=== PATIENT | male | born 1940 | race Caucasian/White ===

== ENCOUNTER → 2016-11-11 | Outpatient (CLI) | payer MEDICARE, OTHER ==
[2016-11-11 08:02] LABS: Basophils # (A) 0.1 k/uL (0-0.2); Basophils % (A) 1 %; CH 28.9; CHCM 32.3; Eosinophils # (A) 0.2 k/uL (0-0.7); Eosinophils % (A) 3 %; HCT 48.6 % (39.0-53.0); HDW 2.32; HGB 15.9 gm/dL (13.0-17.5); Luc # (Auto) 0.27; Luc % (Auto) 3; Lymphocytes # (A) 1.7 k/uL (1.0-4.8); Lymphocytes % (A) 22 %; MCH 29.4 pg (25.0-35.0); MCHC 32.7 g/dL (31.0-37.0); MCV 89.9 fL (80.0-100.0); Mean Platelet Volume 9.8; Monocytes # (A) 0.7 k/uL (0-1.0); Monocytes % (A) 8 %; Neutrophils % (A) 63 %; RBC 5.41 m/uL (4.30-5.90); RDW 13.5 % (11.5-15.5); WBC 7.9 k/uL (3.8-10.6); WBC (Perox) 8.13
[2016-11-11 10:22] LABS: Rheumatoid Factor, Qnt <9 IU/mL (<12)
[2016-11-11 10:23] LABS: C Reactive Protein 20.9 mg/L (<10.0); Uric Acid 5.2 mg/dL (3.5-8.5)
[2016-11-11 12:38] LABS: Erythrocyte Sedimentation Rate 16 mm/hr (0-15)
== END | disposition home or self-care (01) ==
LOC: LABWHC1 07:24
PROVIDERS: ATTEND Orthopaedic Surgery
DX: M25.50 Pain in unspecified joint (principal)
CPT/HCPCS: 36415; 84550; 85025; 85652; 86038; 86140; 86431

== ENCOUNTER → 2016-11-12 | Outpatient (CLI) | payer MEDICARE, OTHER ==
--- NOTE | 2016-11-12 13:43 | NM ---
EXAMINATION TYPE: NM bone 3 phase DATE OF EXAM: 11/12/2016 1:35 PM COMPARISON: NONE HISTORY: Right knee replacement Triple phase bone scintigraphy was performed following the injection of24.9 mCi Tc 99m MDP. Immediat e images and 5 hours post injection images acquired. FINDINGS: There is symmetric flow bilaterally. Photopenic defect involving the right knee compatible with previ ous surgery. No suspicious uptake seen for infectious process. IMPRESSION: No scintigraphic evidence of infection or loosening..
== END | disposition home or self-care (01) ==
LOC: RADNMMAIN 07:37
PROVIDERS: ATTEND Orthopaedic Surgery
DX: M25.561 Pain in right knee (principal)
CPT/HCPCS: 78315; A9503

== ENCOUNTER → 2016-11-29 | Outpatient (CLI) | payer MEDICARE, OTHER ==
--- NOTE | 2016-11-29 12:41 | CT ---
EXAMINATION TYPE: CT brain wo con DATE OF EXAM: 11/29/2016 12:26 PM COMPARISON: NONE INDICATION: [place], post head injury DLP: 1051.5 mGycm, Automated exposure control for dose reduction was used. CONTRAST: No contrast CT of the brain is performed utilizing 3 mm thick sections through the posterior fossa and 3 mm thick sections through the remaining calvarium. Study is performed within 24 hours of arrival to the hosp ital. No abnormal hyperdensity is present to suggest an acute intracranial hemorrhage. No mass lesion is evident. No acute infarcts are evident. Ventricles and sulci are appropriate for the patient age. Mucosal thickening within the left maxillary sinus. Remaining paranasal sinuses and mastoid air cells included within the [id number] are clear. IMPRESSIONS: 1. No acute intracranial process.
== END | disposition home or self-care (01) ==
LOC: RADCTMAIN 11:46
PROVIDERS: ATTEND Internal Medicine
DX: R51 Headache (principal)
CPT/HCPCS: 70450

== ENCOUNTER → 2018-02-17 | Outpatient (CLI) | payer MEDICARE, OTHER ==
--- NOTE | 2018-02-22 19:16 | ENG ---
ELECTRONYSTAGMOGRAM REPORT DATE OF SERVICE: 02/17/2018 VIDEO ELECTRONYSTAGMOGRAPHIC REPORT: AGE: 77 VNG INDICATIONS: 77-year-old male with chronic dizziness over 40 years, sudden onset staying the same. Dizziness occurs every 2-3 days and duration varies. Dizziness can be precipitated by going from a lying or to a seated position, looking up or head back position, bending over or head down position, moving the head or in large crowds or dizzy improvements. No difficulties with hearing reported. Has tinnitus in both ears. Steady nature without pain, fullness or pressure. VNG FINDINGS: SPONTANEOUS NYSTAGMUS: SACCADES: Saccades shows intact peak velocities, accuracies and latencies. GAZE TEST: Gaze with fixation shows no nystagmus in any of the directions of gaze including centrally with vision denied. SINUSOIDAL TRACKING: Tracking shows [id number] break-ups. OKN TEST: Optokinetic nystagmus shows no asymmetry. NELLI-HALLPIKE TEST: [place]-Hallpike maneuvers could not be completed due to back and neck pain issues. POSITION TEST: Static position testing in 4 different positions with eyes open and then with vision denied shows no nystagmus. CALORIC TEST: Caloric testing shows bilateral caloric weakness. CONCLUSIONS: Tracking is impaired suggesting possible central nervous system causation. No nystagmus was encountered throughout the test. Caloric testing showed bilateral caloric weakness with insufficient caloric response. Another test such as head thrust test or if available, active and passive rotation testing is required to confirm presence of bilateral vestibular dysfunction. Other features of this study are unremarkable. MMODL / IJN: [id number] /
== END | disposition home or self-care (01) ==
LOC: NEUROMAIN 07:23
PROVIDERS: ATTEND Otolaryngology
DX: H81.8X3 Other disorders of vestibular function, bilateral (principal)
CPT/HCPCS: 92537; 92540

== ENCOUNTER → 2018-03-10 | Outpatient (CLI) | payer MEDICARE, OTHER ==
--- NOTE | 2018-03-10 14:58 | CT ---
EXAMINATION TYPE: CT iac wo/w con DATE OF EXAM: 03/10/2018 COMPARISON: NONE HISTORY: Hearing loss CT DLP: 524 mGycm Automated exposure control for dose reduction was used. CONTRAST: CT scan of the IACs is performed without and with IV Contrast, patient injected with 100 ml mL of Iso gissell 300. FINDINGS: The external auditory canals are patent bilaterally. Mastoid air cells show no evidence of abnormal opacification bilaterally. The middle ear ossicles are symmetric and unremarkable. No cerebellopontine angle mass. Changes of chronic sinusitis noted involving the left maxillary sinus . There is no evidence of suspicious surrounding soft tissue density to suggest cholesteatoma. The scu caprice is preserved bilaterally. The cochlea and the semicircular canals are symmetric and unremarkable . Vestibular aqueduct and internal carotid canal appear unremarkable. Temporomandibular joints are agustin ntained bilaterally. IMPRESSION: No significant abnormality seen to account for patient's symptoms.
== END | disposition home or self-care (01) ==
LOC: RADCTMAIN 13:11
PROVIDERS: ATTEND Otolaryngology
DX: H91.90 Unspecified hearing loss, unspecified ear (principal); R42 Dizziness and giddiness
CPT/HCPCS: 82565; 84520; 70482; 36415; Q9967

== ENCOUNTER 2018-07-21 16:20 | Inpatient (IN) | payer MEDICARE, OTHER ==
[2018-07-21] MEDS ORDERED: ASPIRIN 81 MG PO STA (16:44)
[2018-07-21] MEDS ORDERED: NITROGLYCERIN SL TABS 0.4 MG TAB SUBLINGUAL STA ×3 (16:44)
--- NOTE | 2018-07-21 16:48 | ED ---
General Adult HPI - General Chief complaint: Chest Pain Stated complaint: Chest Pain Time Seen by Provider: 07/21/18 16:37 Source: patient, family, RN notes reviewed Mode of arrival: wheelchair Limitations: no limitations - History of Present Illness Initial comments: Patient is a pleasant 78-year-old nail presenting to the emergency Department with complaints of chest discomfort. Onset of symptoms was 3-4 days ago. Symptoms have been waxing and waning. Discomfort feels like tightness. Discomfort is currently 6/10. Patient tried nitroglycerin a day or so ago without improvement of symptoms. Symptoms are similar to previous heart problems. No associated nausea. Patient does feel slightly short of breath and has been somewhat sweaty. - Related Data Home Medications Medication Instructions Recorded Confirmed Atenolol [Tenormin] 50 mg PO DAILY 07/21/18 07/21/18 Atorvastatin Calcium [Lipitor] 20 mg PO HS 07/21/18 07/21/18 Chlorthalidone 25 mg PO DAILY 07/21/18 07/21/18 Docusate [Colace] 200 mg PO BID PRN 07/21/18 07/21/18 Gemfibrozil [Lopid] 600 mg PO AC-BID 07/21/18 07/21/18 Hydrocodone/Acetaminophen [[place] 1 tab PO Q8H PRN 07/21/18 07/21/18 7.5-325] Insulin Aspart [Novolog] 30 unit SQ AC-TID 07/21/18 07/21/18 Insulin Detemir [Levemir] 100 unit SQ DAILY 07/21/18 07/21/18 Isosorbide Mononitrate ER [Imdur] 30 mg PO DAILY 07/21/18 07/21/18 Meclizine [Antivert] 25 mg PO Q8HR PRN 07/21/18 07/21/18 Omeprazole 20 mg PO DAILY 07/21/18 07/21/18 amLODIPine [Norvasc] 5 mg PO DAILY 07/21/18 07/21/18 metFORMIN HCL [Glucophage] 1,000 mg PO BID 07/21/18 07/21/18 Allergies Allergy/AdvReac Type Severity Reaction Status Date / Time No Known Allergies Allergy Verified 07/21/18 16:30 Review of Systems ROS Statement: Those systems with pertinent positive or pertinent negative responses have been documented in the HPI. ROS Other: All systems not noted in ROS Statement are negative. Constitutional: Denies: fever Eyes: Denies: eye pain ENT: Denies: ear pain Respiratory: Denies: cough Cardiovascular: Reports: chest pain Endocrine: Denies: fatigue Gastrointestinal: Denies: abdominal pain Genitourinary: Denies: dysuria Musculoskeletal: Denies: back pain Skin: Denies: rash Neurological: Denies: weakness Past Medical History Past Medical History: CVA/TIA, Hypertension, Sleep Apnea/CPAP/BIPAP History of Any Multi-Drug Resistant Organisms: None Reported Past Surgical History: Hernia Repair Past Psychological History: No Psychological Hx Reported Smoking Status: Never smoker Past Alcohol Use History: None Reported Past Drug Use History: None Reported General Exam Limitations: no limitations General appearance: alert, in no apparent distress Head exam: Present: atraumatic Eye exam: Present: normal appearance, PERRL ENT exam: Present: normal oropharynx Neck exam: Present: normal inspection Respiratory exam: Present: normal lung sounds bilaterally Cardiovascular Exam: Present: regular rate, normal rhythm Expanded Peripheral pulses: 2+: Radial (R), Radial (L), Posterior Tibialis (R), Posterior Tibialis (L) GI/Abdominal exam: Present: soft. Absent: tenderness Extremities exam: Present: normal inspection. Absent: pedal edema, calf tenderness Neurological exam: Present: alert Psychiatric exam: Present: normal affect, normal mood Skin exam: Present: normal color Course Vital Signs 07/21/18 07/21/18 07/21/18 16:26 17:09 17:12 Temperature 98.3 F 98.8 F Pulse Rate 81 73 Pulse Rate [ 73 Left Pulse Oximetery] Respiratory 20 20 20 Rate Blood Pressure 145/82 128/73 O2 Sat by Pulse 94 L 92 L Oximetry EKG Findings - EKG Comments: EKG Findings:: Sinus rhythm at 78. MA 200. QRS 104. QT 392. QTC 446. Left axis. Incomplete right bundle-branch block. Borderline ST depression leads V3 through V5. Medical Decision Making - Medical Decision Making Patient reevaluated and symptom-free following nitroglycerin. Patient and family are updated regarding results and plan. Dr. Abel has been paged for admission of this patient. Dr. Bajwa has been notified with cardiology. - Lab Data Result diagrams: 07/21/18 17:01 07/21/18 17:01 Lab Results 07/21/18 07/21/18 07/21/18 Range/Units 17:01 17:01 17:01 WBC 8.6 (3.8-10.6) k/uL RBC 5.11 (4.30-5.90) m/uL Hgb 15.1 (13.0-17.5) gm/dL Hct 47.5 (39.0-53.0) % MCV 92.9 (80.0-100.0) fL MCH 29.6 (25.0-35.0) pg MCHC 31.8 (31.0-37.0) g/dL RDW 13.4 (11.5-15.5) % Plt Count 238 (150-450) k/uL Neutrophils % 64 % Lymphocytes % 23 % Monocytes % 8 % Eosinophils % 3 % Basophils % 1 % Neutrophils # 5.5 (1.3-7.7) k/uL Lymphocytes # 2.0 (1.0-4.8) k/uL Monocytes # 0.7 (0-1.0) k/uL Eosinophils # 0.3 (0-0.7) k/uL Basophils # 0.1 (0-0.2) k/uL PT (9.0-12.0) sec INR (<1.2) APTT (22.0-30.0) sec Sodium 137 (137-145) mmol/L Potassium 3.9 (3.5-5.1) mmol/L Chloride 98 (98-107) mmol/L Carbon Dioxide 24 (22-30) mmol/L Anion Gap 15 mmol/L BUN 26 H (9-20) mg/dL Creatinine 1.07 (0.66-1.25) mg/dL Est GFR (CKD-EPI)AfAm 78 (>60 ml/min/1.73 sqM) Est GFR (CKD-EPI)NonAf 68 (>60 ml/min/1.73 sqM) Glucose 449 H (74-99) mg/dL Calcium 9.2 (8.4-10.2) mg/dL Magnesium 1.3 L (1.6-2.3) mg/dL Total Bilirubin 0.3 (0.2-1.3) mg/dL AST 24 (17-59) U/L ALT 27 (21-72) U/L Alkaline Phosphatase 106 (38-126) U/L Total Creatine Kinase 51 L (55-170) U/L CK-MB (CK-2) 3.4 H (0.0-2.4) ng/mL CK-MB (CK-2) Rel Index 6.7 Troponin I 0.405 H* (0.000-0.034) ng/mL Total Protein 6.9 (6.3-8.2) g/dL Albumin 3.9 (3.5-5.0) g/dL Amylase 48 (30-110) U/L Lipase 152 (23-300) U/L 07/21/18 Range/Units 17:01 WBC (3.8-10.6) k/uL RBC (4.30-5.90) m/uL Hgb (13.0-17.5) gm/dL Hct (39.0-53.0) % MCV (80.0-100.0) fL MCH (25.0-35.0) pg MCHC (31.0-37.0) g/dL RDW (11.5-15.5) % Plt Count (150-450) k/uL Neutrophils % % Lymphocytes % % Monocytes % % Eosinophils % % Basophils % % Neutrophils # (1.3-7.7) k/uL Lymphocytes # (1.0-4.8) k/uL Monocytes # (0-1.0) k/uL Eosinophils # (0-0.7) k/uL Basophils # (0-0.2) k/uL PT 10.1 (9.0-12.0) sec INR 1.0 (<1.2) APTT 23.6 (22.0-30.0) sec Sodium (137-145) mmol/L Potassium (3.5-5.1) mmol/L Chloride (98-107) mmol/L Carbon Dioxide (22-30) mmol/L Anion Gap mmol/L BUN (9-20) mg/dL Creatinine (0.66-1.25) mg/dL Est GFR (CKD-EPI)AfAm (>60 ml/min/1.73 sqM) Est GFR (CKD-EPI)NonAf (>60 ml/min/1.73 sqM) Glucose (74-99) mg/dL Calcium (8.4-10.2) mg/dL Magnesium (1.6-2.3) mg/dL Total Bilirubin (0.2-1.3) mg/dL AST (17-59) U/L ALT (21-72) U/L Alkaline Phosphatase (38-126) U/L Total Creatine Kinase (55-170) U/L CK-MB (CK-2) (0.0-2.4) ng/mL CK-MB (CK-2) Rel Index Troponin I (0.000-0.034) ng/mL Total Protein (6.3-8.2) g/dL Albumin (3.5-5.0) g/dL Amylase (30-110) U/L Lipase (23-300) U/L - Radiology Data Radiology results: image reviewed (Chest x-ray shows chronic elevated right hemidiaphragm, unchanged.) Critical Care Time Critical Care Time: Yes Total Critical Care Time: 32 Disposition Clinical Impression: NSTEMI (non-ST elevated myocardial infarction) Disposition: ADMITTED IP TO THIS [facility] Condition: Serious Is patient prescribed a controlled substance at d/c from ED?: No Referrals: Sharlene Abel MD [Primary Care Provider] - 1-2 days Decision Time: 18:25
[2018-07-21 17:16] LABS: Basophils # (A) 0.1 k/uL (0-0.2); Basophils % (A) 1 %; Eosinophils # (A) 0.3 k/uL (0-0.7); Eosinophils % (A) 3 %; HCT 47.5 % (39.0-53.0); HGB 15.1 gm/dL (13.0-17.5); Lymphocytes % (A) 23 %; MCH 29.6 pg (25.0-35.0); MCHC 31.8 g/dL (31.0-37.0); MCV 92.9 fL (80.0-100.0); Mean Platelet Volume 9.4; Monocytes # (A) 0.7 k/uL (0-1.0); Monocytes % (A) 8 %; Neutrophils # (A) 5.5 k/uL (1.3-7.7); Neutrophils % (A) 64 %; Platelet Count 238 k/uL (150-450); RBC 5.11 m/uL (4.30-5.90); RDW 13.4 % (11.5-15.5); WBC 8.6 k/uL (3.8-10.6)
[2018-07-21 17:23] LABS: Partial Thromboplastin Time 23.6 sec (22.0-30.0); Prothrombin Time 10.1 sec (9.0-12.0)
[2018-07-21 17:24] LABS: Albumin 3.9 g/dL (3.5-5.0); Calcium 9.2 mg/dL (8.4-10.2); Magnesium 1.3 mg/dL (1.6-2.3); Potassium 3.9 mmol/L (3.5-5.1); Total Bilirubin 0.3 mg/dL (0.2-1.3); Total Protein 6.9 g/dL (6.3-8.2)
[2018-07-21 17:46] LABS: Creatine Kinase MB 3.4 ng/mL (0.0-2.4)
[2018-07-21 17:48] LABS: Troponin I 0.405 ng/mL (0.000-0.034)
--- NOTE | 2018-07-21 18:14 | XR ---
EXAMINATION TYPE: XR chest 2V DATE OF EXAM: 07/21/2018 COMPARISON: 05/15/2016 HISTORY: Chest pain TECHNIQUE: Frontal and lateral views of the chest are obtained. FINDINGS: There is elevated right diaphragm. There is no heart failure. There are chest leads. Lungs are clear of consolidation. Heart size is normal. The bony thorax is intact. IMPRESSION: There is chronic right diaphragm elevation that could relate to paralysis. No change.
[2018-07-21] MEDS ORDERED: HEPARIN SODIUM,PORCINE 5,000 UNIT/ML 1 ML VIAL IV ONE (18:25)
[2018-07-21] MEDS ORDERED: HEPARIN SODIUM,PORCINE 5,000 UNIT/ML 1 ML VIAL IV PRN (18:25)
[2018-07-21] MEDS ORDERED: NITROGLYCERIN SL TABS 0.4 MG TAB SUBLINGUAL PRN (18:25)
[2018-07-21] MEDS ORDERED: HEPARIN SOD,PORK IN 0.45% NACL 25,000 UNIT in 0.45% NACL 1 500ML.BAG IV SCH (18:30)
[2018-07-21 20:20] LABS: Glucose,Whole Blood 396 mg/dL (75-99)
[2018-07-21] MEDS ORDERED: DOCUSATE 100 MG CAP PO PRN (20:54)
[2018-07-21] MEDS ORDERED: MECLIZINE 25 MG TAB PO PRN (20:54)
[2018-07-21] MEDS ORDERED: ATORVASTATIN 20 MG TAB PO SCH (21:00)
[2018-07-21] MEDS: HYDROcodone/APAP 7.5-325MG 1 EACH TAB PO PRN (21:21)
[2018-07-21] MEDS: INSULIN ASPART 100 UNIT/ML 1 ML 10 ML VIAL SQ SCH ×2 (21:30→21:54)
[2018-07-21] MEDS: INSULIN DETEMIR 100 UNIT/ML 10 ML VIAL SQ SCH (22:10)
[2018-07-21] MEDS ORDERED: Magnesium Replacement Protocol 1 EACH MISC MISCELLANE PRN (22:17)
[2018-07-21] MEDS: MAGNESIUM SULFATE-D5W PMX 1 GM in DEXTROSE/WATER 1 100ML.BAG IVPB SCH (23:01)
[2018-07-21 23:51] LABS: Creatine Kinase MB 2.9 ng/mL (0.0-2.4)
[2018-07-21 23:55] LABS: Troponin I 0.457 ng/mL (0.000-0.034)
[2018-07-22] MEDS ORDERED: NITROGLYCERIN OINT 1 INCH/GM PACKET TOPICAL SCH
[2018-07-22] MEDS: MAGNESIUM SULFATE-D5W PMX 1 GM in DEXTROSE/WATER 1 100ML.BAG IVPB SCH ×2 (00:02→01:17)
[2018-07-22 02:31] LABS: Hemoglobin A1C 12.3 % (4.0-6.0)
[2018-07-22 05:44] LABS: Mean Platelet Volume 8.5; Platelet Count 233 k/uL (150-450)
[2018-07-22 06:22] LABS: Glucose,Whole Blood 146 mg/dL (75-99)
[2018-07-22] MEDS: INSULIN ASPART 100 UNIT/ML 1 ML 10 ML VIAL SQ SCH ×7 (06:36→20:37)
[2018-07-22 06:40] LABS: Creatine Kinase MB 3.6 ng/mL (0.0-2.4)
[2018-07-22] MEDS: PANTOPRAZOLE 40 MG TABLET PO SCH (06:40)
[2018-07-22 06:41] LABS: Troponin I 0.709 ng/mL (0.000-0.034)
--- NOTE | 2018-07-22 08:12 | P.CRDCN ---
History of Present Illness Consult date: 07/22/18 Requesting physician: Sharlene Abel Consult reason: non-Q-wave MA Chief complaint: Chest pain History of present illness: This is 78-year-old gentleman who follows with Dr. Fuentes in the office. He has a known history of diabetes, hypertension, hyperlipidemia, coronary artery disease with prior myocardial infarction and stent placements, exact details of these but not yet available. History was taken from the patient and the daughter who is at bedside. According to the patient, he states he's been having intermittent chest discomfort for approximate five-day duration. He initially thought it was heartburn and had been treating himself for that. Because of symptoms persisted in spite of taking antacids and nitroglycerin, patient came to the emergency room for further evaluation. EKG on arrival here showed a normal sinus rhythm with incomplete right bundle branch block pattern and nonspecific ST-T wave changes. Subsequent EKG performed this morning showed a normal sinus rhythm ST-T wave changes noted in the inferior leads. Chest x-ray does not show any acute changes. Blood pressure on arrival here 144/80 with a heart rate in the 80s, 94% on room air. I pressure this morning 120/70 with a heart rate in the 60s, 93% on room air. CBC is normal, sodium 137, potassium 3.9, BUN 26, creatinine 1.0. Blood glucose on arrival 449. Troponins 0.40, 0.45, 0.70. At the time of my examination this morning he is currently chest pain-free. According to the patient he has last seen Dr. Fuentes in the office approximately a month ago , states that he had several tests performed at that time. Past Medical History Past Medical History: Asthma, CVA/TIA, Diabetes Mellitus, Deep Vein Thrombosis ( DVT), GERD/Reflux, Hyperlipidemia, Hypertension, Myocardial Infarction (MA), Sleep Apnea/CPAP/BIPAP Additional Past Medical History / Comment(s): rt side dominant. vertigo, bronchitis, "poor circluation", chronic back pain, "wears o2 instead of using cpap machine" Last Myocardial Infarction Date:: unk History of Any Multi-Drug Resistant Organisms: None Reported Past Surgical History: Cholecystectomy, Heart Catheterization, Hernia Repair, Joint Replacement Additional Past Surgical History / Comment(s): ujmb hernia repair, vandana cataract sx," rt groin stents", colonoscopy, rt knee replacment, "nerves burned in back and epidural injections" Past Anesthesia/Blood Transfusion Reactions: Motion Sickness Additional Past Anesthesia/Blood Transfusion Reaction / Comment(s): clausterphobia Smoking Status: Never smoker - Past Family History Mother History Unknown: Yes Father History Unknown: Yes Medications and Allergies Home Medications Medication Instructions Recorded Confirmed Type Atenolol [Tenormin] 50 mg PO DAILY 07/21/18 07/21/18 History Atorvastatin Calcium [Lipitor] 20 mg PO HS 07/21/18 07/21/18 History Chlorthalidone 25 mg PO DAILY 07/21/18 07/21/18 History Docusate [Colace] 200 mg PO BID PRN 07/21/18 07/21/18 History Gemfibrozil [Lopid] 600 mg PO AC-BID 07/21/18 07/21/18 History Hydrocodone/Acetaminophen [[place] 1 tab PO Q8H PRN 07/21/18 07/21/18 History 7.5-325] Insulin Aspart [Novolog] 40 unit SQ AC-TID 07/21/18 07/21/18 History Insulin Detemir [Levemir] 100 unit SQ DAILY 07/21/18 07/21/18 History Isosorbide Mononitrate ER [Imdur] 30 mg PO DAILY 07/21/18 07/21/18 History Meclizine [Antivert] 25 mg PO Q8HR PRN 07/21/18 07/21/18 History Omeprazole 20 mg PO DAILY 07/21/18 07/21/18 History amLODIPine [Norvasc] 5 mg PO DAILY 07/21/18 07/21/18 History metFORMIN HCL [Glucophage] 1,000 mg PO BID 07/21/18 07/21/18 History Allergies Allergy/AdvReac Type Severity Reaction Status Date / Time No Known Allergies Allergy Verified 07/21/18 16:30 Physical Exam Vitals: Vital Signs Temp Pulse Pulse Resp BP BP Pulse Ox 07/22/18 04:00 97 F L 64 18 121/76 93 L 07/22/18 00:00 97.5 F L 76 18 127/74 93 L 07/21/18 20:30 97.3 F L 65 18 133/76 96 07/21/18 20:00 18 07/21/18 19:28 98.8 F 73 20 128/73 92 L 07/21/18 17:12 98.8 F 73 20 128/73 92 L 07/21/18 17:09 73 20 07/21/18 16:26 98.3 F 81 20 145/82 94 L Intake and Output 07/21/18 07/22/18 07/22/18 22:59 06:59 14:59 Intake Total 432.667 Output Total 100 525 Balance -100 -92.333 Intake: Intake, IV Titration 432.667 Amount Heparin Sod,Pork in 0.45% 132.667 NaCl 25,000 unit In 0.45 % NaCl 1 500ml.bag @ 8. 819 UNITS/KG/HR 20 mls/hr IV .Q24H DAMIAN Rx#: [id number] Magnesium Sulfate-D5w Pmx 300 1 gm In Dextrose/Water 1 100ml.bag @ 100 mls/hr IVPB Q1H DAMIAN Rx#: [id number] Output: Urine 100 525 Other: # Voids 1 Weight 113.398 kg 116 kg PHYSICAL EXAMINATION: GENERAL: This is a 78-year-old gentleman in no acute distress at the time of my examination HEENT: Head is atraumatic, normocephalic. Pupils equal, round. Sclera anicteric. Conjunctiva are clear. Mucous membranes of the mouth are moist. Neck is supple. There is no elevated jugular venous pressure. No carotid bruit is heard. HEART EXAMINATION: Heart S1 and S2 systolic murmur is heard CHEST EXAMINATION: Lungs are clear to auscultation and precussion. No chest wall tenderness is noted on palpation or with deep breathing. ABDOMEN: Soft, obese, nontender. Bowel sounds are heard. No organomegaly noted. EXTREMITIES: 2+ peripheral pulses with no evidence of peripheral edema and no calf tenderness noted. NEUROLOGIC patient is awake, alert and oriented X3. . Results 07/22/18 05:31 07/21/18 17:01 Cardiac Enzymes 07/21/18 07/21/18 07/21/18 Range/Units 17:01 17:01 23:14 AST 24 (17-59) U/L CK-MB (CK-2) 3.4 H 2.9 H (0.0-2.4) ng/mL Troponin I 0.405 H* 0.457 H* (0.000-0.034) ng/mL 07/22/18 Range/Units 05:31 AST (17-59) U/L CK-MB (CK-2) 3.6 H (0.0-2.4) ng/mL Troponin I 0.709 H* (0.000-0.034) ng/mL Coagulation 07/21/18 07/22/18 Range/Units 17:01 01:30 PT 10.1 (9.0-12.0) sec APTT 23.6 27.1 (22.0-30.0) sec CBC 07/21/18 07/22/18 Range/Units 17:01 05:31 WBC 8.6 (3.8-10.6) k/uL RBC 5.11 (4.30-5.90) m/uL Hgb 15.1 (13.0-17.5) gm/dL Hct 47.5 (39.0-53.0) % Plt Count 238 233 (150-450) k/uL Comprehensive Metabolic Panel 07/21/18 Range/Units 17:01 Sodium 137 (137-145) mmol/L Potassium 3.9 (3.5-5.1) mmol/L Chloride 98 (98-107) mmol/L Carbon Dioxide 24 (22-30) mmol/L BUN 26 H (9-20) mg/dL Creatinine 1.07 (0.66-1.25) mg/dL Glucose 449 H (74-99) mg/dL Calcium 9.2 (8.4-10.2) mg/dL AST 24 (17-59) U/L ALT 27 (21-72) U/L Alkaline Phosphatase 106 (38-126) U/L Total Protein 6.9 (6.3-8.2) g/dL Albumin 3.9 (3.5-5.0) g/dL Current Medications Generic Name Dose Route Start Last Admin Trade Name Freq PRN Reason Stop Dose Admin Hydrocodone Bitart/Acetaminophen 1 each 07/21/18 20:54 07/21/18 21:21 [place] 7.5-325 PO 1 each Q8H PRN Administration Pain Amlodipine Besylate 5 mg 07/22/18 09:00 Norvasc PO DAILY DAMIAN Aspirin 325 mg 07/22/18 09:00 Aspirin PO DAILY [facility] Atenolol 50 mg 07/22/18 09:00 Tenormin PO DAILY [facility] Atorvastatin Calcium 20 mg 07/21/18 21:00 07/21/18 21:21 Lipitor PO 20 mg HS [facility] Administration Chlorthalidone 25 mg 07/22/18 09:00 [place] PO DAILY [facility] Docusate Sodium 200 mg 07/21/18 20:54 Colace PO BID PRN Constipation Fenofibrate 160 mg 07/22/18 09:00 Lofibra PO DAILY [facility] Heparin Sodium (Porcine) 0 unit 07/21/18 18:25 07/22/18 02:52 Heparin IV 4,000 unit Q6HR PRN Administration Low PTT Protocol Heparin Sodium/Sodium Chloride 500 mls @ 20 mls/hr 07/21/18 18:30 07/22/18 02 :48 25,000 unit/ Sodium Chloride IV 11.819 units/kg/hr .Q24H DAMIAN 26.8 mls/hr Titration Protocol 8.819 UNITS/KG/HR Insulin Aspart 0 unit 07/21/18 21:00 07/22/18 06:39 Novolog SQ 1 unit ACHS [facility] Administration Protocol Insulin Aspart 40 unit 07/22/18 07:30 07/22/18 06:36 Novolog SQ Not Given AC-TID [facility] Insulin Detemir 100 unit 07/21/18 21:00 07/21/18 22:10 Levemir SQ 100 unit HS [facility] Administration Isosorbide Mononitrate 30 mg 07/22/18 09:00 Imdur PO DAILY [facility] Meclizine HCl 25 mg 07/21/18 20:54 Antivert PO Q8HR PRN Vertigo Miscellaneous Information 1 each 07/21/18 22:17 Magnesium Per Protocol MISCELLANE DAILY PRN Per Protocol Protocol Nitroglycerin 0.4 mg 07/21/18 18:25 Nitrostat SUBLINGUAL Q5M PRN Chest Pain Pantoprazole Sodium 40 mg 07/22/18 07:30 07/22/18 06:40 Protonix PO 40 mg AC-BRKFST [facility] Administration Intake and Output 07/21/18 07/22/18 07/22/18 22:59 06:59 14:59 Intake Total 432.667 Output Total 100 525 Balance -100 -92.333 Intake: Intake, IV Titration 432.667 Amount Heparin Sod,Pork in 0.45% 132.667 NaCl 25,000 unit In 0.45 % NaCl 1 500ml.bag @ 8. 819 UNITS/KG/HR 20 mls/hr IV .Q24H DAMIAN Rx#: [id number] Magnesium Sulfate-D5w Pmx 300 1 gm In Dextrose/Water 1 100ml.bag @ 100 mls/hr IVPB Q1H [facility]IAN Rx#: [id number] Output: Urine 100 525 Other: # Voids 1 Weight 113.398 kg 116 kg 07/22/18 05:31 07/21/18 17:01 EKG Interpretations (text) EKG shows a normal sinus rhythm with nonspecific ST-T wave changes noted in the inferior lateral leads. Assessment and Plan Plan: Assessment and plan #1 Symptoms of chest discomfort for 4-5 day duration, suggestive of acute coronary syndrome. EKG shows normal sinus tachycardia with changes in the inferior lateral leads. Troponins 0.40, 0.45, 0.70. #2 hypertension #3 diabetes #4 hyperlipidemia #5 prior history of smoking #6 known history of coronary artery disease with prior inferior wall myocardial infarction and RCA stents placement. Plan We will obtain a stat echocardiogram with Doppler study. Continue IV heparin along with aspirin, statin, beta yousuf, add an angiotensin yousuf to his medication regime. Patient has been advised that he will need to undergo cardiac catheterization for more definitive diagnosis. The risks and the benefits were explained to the patient in detail and he is willing to proceed. Further recommendations to follow. DNP note has been reviewed, I agree with a documented findings and plan of care. Patient was seen and examined.
[2018-07-22 08:48] LABS: Basophils # (A) 0.1 k/uL (0-0.2); Basophils % (A) 1 %; Eosinophils # (A) 0.4 k/uL (0-0.7); Eosinophils % (A) 4 %; HCT 47.9 % (39.0-53.0); HGB 15.3 gm/dL (13.0-17.5); Lymphocytes # (A) 2.1 k/uL (1.0-4.8); Lymphocytes % (A) 23 %; MCH 29.2 pg (25.0-35.0); MCHC 32.1 g/dL (31.0-37.0); Mean Platelet Volume 8.8; Monocytes # (A) 0.6 k/uL (0-1.0); Monocytes % (A) 6 %; Neutrophils # (A) 5.6 k/uL (1.3-7.7); Neutrophils % (A) 63 %; Platelet Count 239 k/uL (150-450); RBC 5.26 m/uL (4.30-5.90); RDW 13.3 % (11.5-15.5); WBC 8.9 k/uL (3.8-10.6)
[2018-07-22] MEDS ORDERED: INSULIN DETEMIR 100 UNIT/ML 10 ML VIAL SQ SCH (09:00)
[2018-07-22] MEDS ORDERED: ASPIRIN 325 MG TAB PO SCH (09:00)
[2018-07-22] MEDS ORDERED: ALPRAZolam 0.5 MG TAB PO PRN (09:08)
[2018-07-22] MEDS ORDERED: ATORVASTATIN 80 MG TAB PO STA (09:08)
[2018-07-22] MEDS ORDERED: ALPRAZolam 0.25 MG TAB PO PRN (09:08)
[2018-07-22] MEDS ORDERED: ASPIRIN 325 MG TAB PO STA (09:08)
[2018-07-22] MEDS ORDERED: SODIUM CHLORIDE 0.9% 1,000 ML in EMPTY BAG 1 BAG IV ONE (09:08)
[2018-07-22] MEDS ORDERED: NITROGLYCERIN SL TABS 0.4 MG TAB SUBLINGUAL PRN (09:08)
[2018-07-22 09:14] LABS: Albumin 3.7 g/dL (3.5-5.0); Potassium 3.7 mmol/L (3.5-5.1); Total Bilirubin 0.4 mg/dL (0.2-1.3); Total Protein 6.7 g/dL (6.3-8.2)
[2018-07-22] MEDS: CHLORTHALIDONE 25 MG TAB PO SCH (09:25)
[2018-07-22] MEDS: LOSARTAN 25 MG TAB PO SCH (09:25)
[2018-07-22] MEDS: FENOFIBRATE 160 MG TAB PO SCH (09:25)
[2018-07-22] MEDS: ISOSORBIDE MONONITRATE ER 30 MG TAB.ER.24H PO SCH (09:25)
[2018-07-22] MEDS: ATENOLOL 50 MG TAB PO SCH (09:25)
[2018-07-22] MEDS: amLODIPine 5 MG TAB PO SCH (09:25)
[2018-07-22] MEDS ORDERED: IV FLUID CONTINUATION 1,000 ML IV ONE (09:37)
[2018-07-22] MEDS ORDERED: MIDAZOLAM 2 MG/2 ML VIAL ONE (09:41)
[2018-07-22] MEDS ORDERED: LIDOCAINE 1% INJ 10MG/ML (20 ML MDV) ONE (09:42)
[2018-07-22] MEDS ORDERED: diphenhydrAMINE 50 MG/ML 1 ML VIAL ONE (09:42)
[2018-07-22] MEDS ORDERED: diphenhydrAMINE 50 MG/ML 1 ML VIAL IVP ONE (10:09)
[2018-07-22] MEDS ORDERED: MIDAZOLAM 2 MG/2 ML VIAL IV ONE (10:10)
[2018-07-22] MEDS ORDERED: LIDOCAINE 1% INJ 10MG/ML (20 ML MDV) SQ ONE (10:14)
--- NOTE | 2018-07-22 10:25 | P.HPIM ---
History of Present Illness H&P Date: 07/22/18 Chief Complaint: chest pain This is a 78-year-old male patient presented to the emergency room with complaints of chest discomfort. Patient states that the pain has been going on intermittently for 3-4 days. Patient has a known past medical history of asthma , CVA, diabetes mellitus, DVT, GERD, hyperlipidemia, hypertension, myocardial infarction, sleep apnea, heart catheterization, hernia repair and joint replacement. Patient also presents with daughter and his caregiver. Patient does wear home O2. Chest x-ray completed showing chronic right diaphragm elevation and could relate paralysis. No change. EKG completed showing sinus rhythm with premature atrial complexes. Left axis deviation. Incomplete right bundle branch block. Moderate voltage criteria for LVH, may be normal variant. Troponins 0.457, 0.709. Patient was started on heparin drip. 2-D echo has been ordered. Cardiology services consulted. Per cardiology services planning for cardiac catheterization today. Patient denies chest pain or shortness of breath. Denies any nausea vomiting or diarrhea. Denies any urinary burning or frequency. Review of Systems please refer to HPI otherwise unremarkable Past Medical History Past Medical History: Asthma, CVA/TIA, Diabetes Mellitus, Deep Vein Thrombosis ( DVT), GERD/Reflux, Hyperlipidemia, Hypertension, Myocardial Infarction (AR), Sleep Apnea/CPAP/BIPAP Additional Past Medical History / Comment(s): rt side dominant. vertigo, bronchitis, "poor circluation", chronic back pain, "wears o2 instead of using cpap machine" Last Myocardial Infarction Date:: unk History of Any Multi-Drug Resistant Organisms: None Reported Past Surgical History: Cholecystectomy, Heart Catheterization, Hernia Repair, Joint Replacement Additional Past Surgical History / Comment(s): ujmb hernia repair, vandana cataract sx," rt groin stents", colonoscopy, rt knee replacment, "nerves burned in back and epidural injections" Past Anesthesia/Blood Transfusion Reactions: Motion Sickness Additional Past Anesthesia/Blood Transfusion Reaction / Comment(s): clausterphobia Smoking Status: Never smoker - Past Family History Mother History Unknown: Yes Father History Unknown: Yes Medications and Allergies Home Medications Medication Instructions Recorded Confirmed Type Atenolol [Tenormin] 50 mg PO DAILY 07/21/18 07/21/18 History Atorvastatin Calcium [Lipitor] 20 mg PO HS 07/21/18 07/21/18 History Chlorthalidone 25 mg PO DAILY 07/21/18 07/21/18 History Docusate [Colace] 200 mg PO BID PRN 07/21/18 07/21/18 History Gemfibrozil [Lopid] 600 mg PO AC-BID 07/21/18 07/21/18 History Hydrocodone/Acetaminophen [Palacios 1 tab PO Q8H PRN 07/21/18 07/21/18 History 7.5-325] Insulin Aspart [Novolog] 40 unit SQ AC-TID 07/21/18 07/21/18 History Insulin Detemir [Levemir] 100 unit SQ DAILY 07/21/18 07/21/18 History Isosorbide Mononitrate ER [Imdur] 30 mg PO DAILY 07/21/18 07/21/18 History Meclizine [Antivert] 25 mg PO Q8HR PRN 07/21/18 07/21/18 History Omeprazole 20 mg PO DAILY 07/21/18 07/21/18 History amLODIPine [Norvasc] 5 mg PO DAILY 07/21/18 07/21/18 History metFORMIN HCL [Glucophage] 1,000 mg PO BID 07/21/18 07/21/18 History Allergies Allergy/AdvReac Type Severity Reaction Status Date / Time No Known Allergies Allergy Verified 07/21/18 16:30 Physical Exam Vitals: Vital Signs Temp Pulse Pulse Resp BP BP Pulse Ox 07/22/18 04:00 97 F L 64 18 121/76 93 L 07/22/18 00:00 97.5 F L 76 18 127/74 93 L 07/21/18 20:30 97.3 F L 65 18 133/76 96 07/21/18 20:00 18 07/21/18 19:28 98.8 F 73 20 128/73 92 L 07/21/18 17:12 98.8 F 73 20 128/73 92 L 07/21/18 17:09 73 20 07/21/18 16:26 98.3 F 81 20 145/82 94 L Intake and Output 07/21/18 07/22/18 07/22/18 22:59 06:59 14:59 Intake Total 432.667 Output Total 100 525 Balance -100 -92.333 Intake: Intake, IV Titration 432.667 Amount Heparin Sod,Pork in 0.45% 132.667 NaCl 25,000 unit In 0.45 % NaCl 1 500ml.bag @ 8. 819 UNITS/KG/HR 20 mls/hr IV .Q24H [facility] Rx#: [id number] Magnesium Sulfate-D5w Pmx 300 1 gm In Dextrose/Water 1 100ml.bag @ 100 mls/hr IVPB Q1H [facility] Rx#: [id number] Output: Urine 100 525 Other: # Voids 1 Weight 113.398 kg 116 kg Head normocephalic Neck supple Lungs clear to auscultation bilaterally no wheezing or crackles Heart regular rate and rhythm S1-S2, no rub or gallop Abdomen is soft nontender nondistended positive bowel sounds no hepatosplenomegaly Extremities no edema Neuro alert and orientated to 3 Results CBC & Chem 7: 07/22/18 08:27 07/22/18 08:27 Labs: Abnormal Lab Results - Last 24 Hours (Table) 07/21/18 07/21/18 07/21/18 Range/Units 17:01 17:01 20:01 APTT (22.0-30.0) sec Chloride (98-107) mmol/L Carbon Dioxide (22-30) mmol/L BUN 26 H (9-20) mg/dL Glucose 449 H (74-99) mg/dL POC Glucose (mg/dL) 396 H (75-99) mg/dL Hemoglobin A1c (4.0-6.0) % Magnesium 1.3 L (1.6-2.3) mg/dL Total Creatine Kinase 51 L (55-170) U/L CK-MB (CK-2) 3.4 H (0.0-2.4) ng/mL Troponin I 0.405 H* (0.000-0.034) ng/mL 07/21/18 07/21/18 07/22/18 Range/Units 23:14 23:14 05:31 APTT (22.0-30.0) sec Chloride (98-107) mmol/L Carbon Dioxide (22-30) mmol/L BUN (9-20) mg/dL Glucose (74-99) mg/dL POC Glucose (mg/dL) (75-99) mg/dL Hemoglobin A1c 12.3 H (4.0-6.0) % Magnesium (1.6-2.3) mg/dL Total Creatine Kinase 49 L (55-170) U/L CK-MB (CK-2) 2.9 H 3.6 H (0.0-2.4) ng/mL Troponin I 0.457 H* 0.709 H* (0.000-0.034) ng/mL 07/22/18 07/22/18 07/22/18 Range/Units 06:18 08:27 08:27 APTT 36.1 H (22.0-30.0) sec Chloride 97 L (98-107) mmol/L Carbon Dioxide 31 H (22-30) mmol/L BUN 23 H (9-20) mg/dL Glucose 174 H (74-99) mg/dL POC Glucose (mg/dL) 146 H (75-99) mg/dL Hemoglobin A1c (4.0-6.0) % Magnesium (1.6-2.3) mg/dL Total Creatine Kinase (55-170) U/L CK-MB (CK-2) (0.0-2.4) ng/mL Troponin I (0.000-0.034) ng/mL Thrombosis Risk Factor Assmnt - Choose All That Apply Any of the Below Risk Factors Present?: Yes Each Factor Represents 1 point: Obesity (BMI >25) Other Risk Factors: Yes Each Risk Factor Represents 3 Points: Age 75 years or older, History of DVT/PE Thrombosis Risk Factor Assessment Total Risk Factor Score: 7 Thrombosis Risk Factor Assessment Level: High Risk Assessment and Plan Assessment: 1. Chest pain. Chest x-ray completed showing chronic right diaphragm elevation is analysis. No change. Troponin level 0.40 and 0.45. EKG shows normal sinus tachycardia with changes in the inferior lateral leads per cardiology. Patient started on heparin drip. 2-D echo has been ordered. Planning for cardiac catheterization today per cardiology 2. History of essential hypertension. Continue home medication of Norvasc, atenolol, Chlorthalidone and Imdur. Cardiology has added Cozaar 3. Diabetes mellitus type 2. Blood Sugar upon arrival to 396 Hemoglobin A1c 12.3. Home meds resumed. Blood sugar improved. 4. History history of coronary artery disease with prior inferior wall myocardial infarction and RCA stent placement. 5. History of CVA. Patient remains right side dominant 6. History of asthma. States he does wear home O2 7. History of hyperlipidemia. Patient currently on Lipitor and fenofibrate. 8. History of GERD GI prophylaxis Protonix Time with Patient: Greater than 30 (Greater than 60% of the total time spent in counseling and coordination of care.I performed an examination of the patient and discussed their management with the Nurse Practitioner. I have reviewed the Nurse Practitioner's notes and agree with the documented findings and plan of care)
[2018-07-22 10:30] LABS: Magnesium 2.1 mg/dL (1.6-2.3)
[2018-07-22] MEDS ORDERED: BIVALIRUDIN BOLUS 250 MG/50 ML IV ONE (10:30)
[2018-07-22] MEDS ORDERED: BIVALIRUDIN 250 MG in SODIUM CHLORIDE 0.9% 50 ML IV ONE (10:31)
[2018-07-22] MEDS ORDERED: IOPAMIDOL-370 100ML BTL INJ ONE ×2 (10:37→10:50)
[2018-07-22] MEDS ORDERED: niCARdipine 25 MG/10 ML VIAL ONE (10:42)
[2018-07-22] MEDS ORDERED: NITROGLYCERIN 1000MCG/10ML SYRINGE INTRACORON ONE (10:42)
[2018-07-22] MEDS ORDERED: niCARdipine Syringe (1,000 mcg/10 mL) INTRACORON ONE (10:43)
[2018-07-22] MEDS ORDERED: TICAGRELOR 90 MG TAB ONE (10:48)
[2018-07-22] MEDS ORDERED: TICAGRELOR 90 MG TAB PO ONE (10:50)
[2018-07-22] MEDS ORDERED: MAG HYDROX/AL HYDROX/SIMETH 30 ML CUP PO PRN (10:54)
[2018-07-22] MEDS ORDERED: RX INFO: IV CONTRAST WAS GIVEN 1 EACH MISC MISCELLANE PRN (10:54)
[2018-07-22] MEDS ORDERED: ATROPINE SULFATE 0.1 MG/ML 10ML SYRINGE IV PRN (10:54)
[2018-07-22 11:26] LABS: Glucose,Whole Blood 233 mg/dL (75-99)
[2018-07-22] MEDS: HYDROcodone/APAP 7.5-325MG 1 EACH TAB PO PRN ×2 (11:50→20:35)
[2018-07-22] MEDS: SODIUM CHLORIDE 0.9% 1,000 ML IV SCH (11:50)
--- NOTE | 2018-07-22 11:56 | CDI ---
Last Revision, October 2017 Documentation Clarification Form Date: 07/22/2018 11:47:19 AM From: Alyson Peña RN, CCDS Admit Date: 07/21/2018 6:27:00 PM Patient Name: Josh Jaquez Visit Number: [id number] ATTENTION: The Clinical Documentation Specialists (CDI) and [facility] Coding Staff appreciate your assistance in clarifying documentation. Please respond to the clarification below the line at the bottom and electronically sign. The CDI & [facility] Coding staff will review the response and follow-up if needed. Please note: Queries are made part of the Legal Health Record. If you have any questions, please contact the author of this message via ITS. Sharlene Amato MD History/Risk Factors: Asthma, GERD, DM, DANIEL, old [place] 07/22 H&P: Home oxygen: "History of asthma. States he does wear home O2." Clinical Indicators: Vital signs: Temp 98.3, HR 81, RR 20, B/P 145/82, Spo2 94% RA Pulse oximetry: 92-94 % RA 07/22 H&P: Lung/Breathing assessment: "Lungs clear to auscultation bilaterally no wheezing or crackles." Treatment: Breathing TX: none ordered Continuous Pulse ox: per unit protocol O2 room air to 2L NC here, home O2 at home In your professional opinion, can you please clarify if these findings signify one of the following conditions? Specificity: Chronic Respiratory Failure, further specify (if known): With hypercapnia? With hypoxia? Other Diagnosis, please specify Unable to determine Please continue to document in your progress notes and discharge summary in order to capture severity of illness and risk of mortality. Include clinical findings that support your diagnosis. Chronic respiratory failure with hypoxia__ MTDD
--- NOTE | 2018-07-22 12:17 | ECHOF ---
Referral Reason:assess lvf MEASUREMENTS -------- HEIGHT: 180.3 cm WEIGHT: 115.7 kg BP: 121/76 RVIDd: 3.1 cm (< 3.3) IVSd: 1.2 cm (0.6 - 1.1) LVIDd: 5.7 cm (3.9 - 5.3) LVPWd: 1.3 cm (0.6 - 1.1) IVSs: 1.5 cm LVIDs: 4.2 cm LVPWs: 1.5 cm LAESV Index (A-L): 17.44 ml/m Ao Diam: 3.3 cm (2.0 - 3.7) AV Cusp: 1.5 cm (1.5 - 2.6) LA Diam: 4.5 cm (2.7 - 3.8) EPSS: 1.4 cm MV E Ahsan: 0.64 m/s MV DecT: 509 ms MV A Ahsan: 1.17 m/s MV E/A Ratio: 0.55 AV maxP.17 mmHg AV meanP.34 mmHg RAP: 5.00 mmHg RVSP: 20.98 mmHg MV EF SLOPE: 49.58 mm/s (70 - 150) MV EXCURSION: 1.52 cm (> 18.000) FINDINGS -------- Sinus rhythm. This was a technically difficult study with suboptimal views. The left ventricular size is normal. There is mild concentric left ventricular hypertrophy. Overa ll left ventricular systolic function is mildly impaired with, an EF between 45 - 50 %. Basal infer ior LV wall motion is hypokinetic. Inferior Hypokinesis The right ventricle is normal in size and function. Normal LA size by volume 22+/-6 ml/m2. RA appears enlarged. 3 ml of Lumason was utilized for enhancement of images. There is mild to moderate aortic valve sclerosis. There is no evidence of aortic regurgitation. T here is mild aortic stenosis present. Peak/mean gradient across the Aortic Valve is 14.17mmHg / 8.3 4mmHg. The mitral valve leaflets are mildly thickened. Mild mitral regurgitation is present. Trace tricuspid regurgitation present. Right ventricular systolic pressure is normal at < 35 mmHg. There is no evidence of pulmonary hypertension. Trace/mild (physiologic) pulmonic regurgitation. The aortic root size is normal. IVC Not well visulized. There is no pericardial effusion. CONCLUSIONS -------- 1. Sinus rhythm. 2. This was a technically difficult study with suboptimal views. 3. The left ventricular size is normal. 4. There is mild concentric left ventricular hypertrophy. 5. Basal inferior LV wall motion is hypokinetic. 6. Inferior Hypokinesis 7. Normal LA size by volume 22+/-6 ml/m2. 8. RA appears enlarged. 9. 3 ml of Lumason was utilized for enhancement of images. 10. There is mild to moderate aortic valve sclerosis. 11. There is mild aortic stenosis present. 12. Peak/mean gradient across the Aortic Valve is 14.17mmHg / 8.34mmHg. 13. The mitral valve leaflets are mildly thickened. 14. Mild mitral regurgitation is present. 15. Trace tricuspid regurgitation present. 16. Right ventricular systolic pressure is normal at < 35 mmHg. 17. There is no evidence of pulmonary hypertension. 18. Trace/mild (physiologic) pulmonic regurgitation. 19. The aortic root size is normal. 20. IVC Not well visulized. 21. There is no pericardial effusion. AUTOMATION CLERK: Ren Gallego RDCS
--- NOTE | 2018-07-22 12:26 | CC ---
CARDIAC CATHETERIZATION REPORT DATE OF SERVICE: . PROCEDURES: 1. Left heart catheterization and coronary angiography. 2. PTCA and stenting of mid/distal RCA with a drug-eluting stent. PERFORMED BY: Dr. Brigid Ramirez. Moderate conscious sedation time was 43 minutes. Patient was administered Benadryl, Versed. His oxygen saturation, hemodynamics and EKG were monitored closely. CLINICAL INFORMATION: Mr. Josh Jaquez is a 78-year-old gentleman who is obese, somewhat lethargic in general. He has history of CAD with acute inferior [place] in 2005 when I performed stenting of a totally occluded RCA in the setting of an acute myocardial infarction for this patient. This was in June of 2006. He had a bare metal 5 mm stent in a very aneurysmal totally occluded proximal/mid RCA. Since then, he has done well and as recently as May, he had a Lexiscan stress test which did not reveal any ischemia. He came into the hospital with classic symptoms of angina, had a troponin elevation suggestive of non-ST elevation [place] and was advised cardiac catheterization and PCI. Risks, benefits, options and rationale were explained. Patient and daughter understood all details and wished to proceed with the procedure. PROCEDURE NOTE: Under local anesthesia and strict aseptic precautions, a 6-Swedish introducer was placed in the right femoral artery. Using a standard Jeremy catheters, I performed coronary angiography. I noted that his previously stented RCA was patent, but beyond that in the mid/distal RCA, there was a 99% stenosis with sluggish flow. Additionally had a very tight lesion in the diagonal branch which did not have any disease in 2005. He was advised intervention of the RCA that was performed expeditiously. Following the procedure, his sheath was sutured and he was sent to the room in a stable condition. I not perform an LV-gram, but I checked LV pressures with a pigtail catheter. CARDIAC CATHETERIZATION FINDINGS: LEFT MAIN CORONARY ARTERY: Short, patent vessel, somewhat ectatic. No significant disease. Bifurcates into LAD and circumflex. LEFT ANTERIOR DESCENDING CORONARY ARTERY: A fair caliber vessel, heavily calcified in the proximal one-third, gives off a good-sized diagonal branch, runs towards the apex and becomes somewhat of a smaller vessel towards the apex. Very high diagonal comes off, has a 90% stenosis which is a progression of disease and this diagonal supplies a fair amount of myocardium with two branches beyond the 80% occlusion. Diagonal therefore has 80% stenosis which is a significant lesion. LEFT POSTERIOR CIRCUMFLEX CORONARY ARTERY: This is a technically nondominant vessel, has a proximal 30% to 35% lesion, then it gives off two obtuse marginal and runs in the AV groove, has minor irregularities. No significant progression of disease. RIGHT CORONARY ARTERY: Very dominant vessel, very ectatic stented segment, is widely patent. Beyond the stented segment, there is a area of 99% stenosis with sluggish flow and some thrombus and this is after an acute marginal branch. This probably is the culprit lesion. There is overall sluggish flow in the very dominant RCA that is quite tortuous. LEFT VENTRICULOGRAM: This was not performed. FINAL IMPRESSION: Patient has a 99% mid/distal right coronary artery stenosis, which is the culprit lesion and an 80%-90% diagonal lesion. Left anterior descending artery is patent, has mild to moderate disease. The circumflex has minor irregularities. Left ventricular filling pressures were about 16-18 mmHg without any gradient across aortic valve. RECOMMENDATION: I recommended PCI of RCA and performed this in the same setting. PCI DETAILS: An ART 4.0 guide catheter was used to cannulate the right coronary artery. A BMW wire was used to cross the lesion. Predilatation was performed with a 2.75 caliber 12 mm Trek balloon. I then deployed a 15 mm long 4.0 caliber Xience stent at 13 atmospheres. Patient did not have symptoms or EKG changes. Excellent angiographic result was achieved. I gave some intracoronary nitroglycerin and nicardipine. Excellent flow was noted after that. The residual stenosis was 0% with remarkable improvement in angiographic appearance and flow without complications. The sheath was sutured and patient was sent to the room in a stable condition. He received Brilinta 180 mg p.o. and also Angiomax bolus and infusion as per protocol. The results were communicated with the patient and the family. Excellent angiographic result without complication was noted. MMODL / IJN: [id number] /
[2018-07-22] MEDS ORDERED: HYDROmorphone 1 MG/ML 1 ML SYRINGE IVP PRN (12:37)
[2018-07-22 16:39] LABS: Glucose,Whole Blood 275 mg/dL (75-99)
[2018-07-22] MEDS: TICAGRELOR 90 MG TAB PO SCH (20:36)
[2018-07-22] MEDS: INSULIN DETEMIR 100 UNIT/ML 10 ML VIAL SQ SCH (20:36)
[2018-07-22 20:42] LABS: Glucose,Whole Blood 185 mg/dL (75-99)
[2018-07-23 01:52] LABS: Glucose,Whole Blood 161 mg/dL (75-99)
[2018-07-23 04:15] VITALS: RESP 18
[2018-07-23] MEDS: SODIUM CHLORIDE 0.9% 1,000 ML IV SCH (04:22)
[2018-07-23 05:47] LABS: Glucose,Whole Blood 343 mg/dL (75-99)
[2018-07-23 06:17] LABS: Glucose,Whole Blood 341 mg/dL (75-99)
[2018-07-23 06:34] LABS: Basophils # (A) 0.1 k/uL (0-0.2); Basophils % (A) 0 %; Eosinophils # (A) 0.2 k/uL (0-0.7); Eosinophils % (A) 2 %; HGB 15.2 gm/dL (13.0-17.5); Lymphocytes # (A) 1.4 k/uL (1.0-4.8); Lymphocytes % (A) 13 %; MCH 29.1 pg (25.0-35.0); MCHC 31.6 g/dL (31.0-37.0); MCV 92.1 fL (80.0-100.0); Mean Platelet Volume 8.8; Monocytes # (A) 0.6 k/uL (0-1.0); Monocytes % (A) 6 %; Neutrophils # (A) 8.6 k/uL (1.3-7.7); Neutrophils % (A) 77 %; Platelet Count 255 k/uL (150-450); RBC 5.21 m/uL (4.30-5.90); RDW 13.2 % (11.5-15.5); WBC 11.1 k/uL (3.8-10.6)
[2018-07-23 06:42] LABS: Albumin 3.9 g/dL (3.5-5.0); Calcium 9.2 mg/dL (8.4-10.2); Potassium 4.4 mmol/L (3.5-5.1); Total Bilirubin 0.4 mg/dL (0.2-1.3)
[2018-07-23] MEDS: PANTOPRAZOLE 40 MG TABLET PO SCH (07:08)
[2018-07-23] MEDS: INSULIN ASPART 100 UNIT/ML 1 ML 10 ML VIAL SQ SCH ×4 (07:08→12:19)
[2018-07-23] MEDS ORDERED: ASPIRIN 81 MG PO SCH (09:00)
[2018-07-23] MEDS: HYDROcodone/APAP 7.5-325MG 1 EACH TAB PO PRN (10:13)
[2018-07-23] MEDS: TICAGRELOR 90 MG TAB PO SCH (10:14)
[2018-07-23] MEDS: ISOSORBIDE MONONITRATE ER 30 MG TAB.ER.24H PO SCH (10:14)
[2018-07-23] MEDS: LOSARTAN 25 MG TAB PO SCH (10:14)
[2018-07-23] MEDS: amLODIPine 5 MG TAB PO SCH (10:20)
[2018-07-23] MEDS: ATENOLOL 50 MG TAB PO SCH (10:20)
[2018-07-23] MEDS: FENOFIBRATE 160 MG TAB PO SCH (10:20)
[2018-07-23] MEDS: CHLORTHALIDONE 25 MG TAB PO SCH (10:20)
[2018-07-23 11:49] LABS: Glucose,Whole Blood 207 mg/dL (75-99)
[2018-07-23 12:40] VITALS: BP 94/56; PULSE 65; TEMP 97.6
--- NOTE | 2018-07-23 12:48 | P.PN ---
Subjective Progress Note Date: 07/23/18 This is 78-year-old gentleman who follows with Dr. Fuentes in the office. He has a known history of diabetes, hypertension, hyperlipidemia, coronary artery disease with prior myocardial infarction and stent placements, exact details of these but not yet available. History was taken from the patient and the daughter who is at bedside. According to the patient, he states he's been having intermittent chest discomfort for approximate five-day duration. He initially thought it was heartburn and had been treating himself for that. Because of symptoms persisted in spite of taking antacids and nitroglycerin, patient came to the emergency room for further evaluation. EKG on arrival here showed a normal sinus rhythm with incomplete right bundle branch block pattern and nonspecific ST-T wave changes. Subsequent EKG performed this morning showed a normal sinus rhythm ST-T wave changes noted in the inferior leads. Chest x-ray does not show any acute changes. Blood pressure on arrival here 144/80 with a heart rate in the 80s, 94% on room air. I pressure this morning 120/70 with a heart rate in the 60s, 93% on room air. CBC is normal, sodium 137, potassium 3.9, BUN 26, creatinine 1.0. Blood glucose on arrival 449. Troponins 0.40, 0.45, 0.70. At the time of my examination this morning he is currently chest pain-free. According to the patient he has last seen Dr. Fuentes in the office approximately a month ago , states that he had several tests performed at that time. 07/23/2018 Patient was taken to the cardiac catheterization lab yesterday by Dr. Brigid Ramirez , underwent PTCA and stenting of the mid and distal RCA. He was seen and examined this morning, denied any chest pain or difficulty in breathing, right groin soft no evidence of hematoma.blood pressure 126/80, heart rate in the 60s to 80s, 92% on room air.White blood cell count 11.1, hemoglobin 15.2, platelet count 255. Sodium 136, potassium 4.4, BUN 25, creatinine 1.1. Objective - Vital Signs Vital signs: Vital Signs Temp 97.6 F 07/23/18 12:00 Pulse 65 07/23/18 12:00 Resp 18 07/23/18 04:13 BP 94/56 07/23/18 12:00 Pulse Ox 96 07/23/18 12:00 Intake & Output 07/22/18 07/23/18 07/23/18 18:59 06:59 18:59 Intake Total 1731.5 480 Output Total 700 Balance 1031.5 480 Weight 115.8 kg Intake: IV 431.5 Intake, IV Titration 1000 Amount Sodium Chloride 0.9% 1, 1000 000 ml @ 75 mls/hr IV . [id number] [facility] Rx#:[id number] Oral 300 480 Output: Urine 700 Other: Voiding Method Toilet # Voids 1 - Exam PHYSICAL EXAMINATION: GENERAL: This is a 78-year-old gentleman in no acute distress at the time of my examination HEENT: Head is atraumatic, normocephalic. Pupils equal, round. Sclera anicteric. Conjunctiva are clear. Mucous membranes of the mouth are moist. Neck is supple. There is no elevated jugular venous pressure. No carotid bruit is heard. HEART EXAMINATION: Heart S1 and S2 systolic murmur is heard CHEST EXAMINATION: Lungs are clear to auscultation and precussion. No chest wall tenderness is noted on palpation or with deep breathing. ABDOMEN: Soft, obese, nontender. Bowel sounds are heard. No organomegaly noted.right groin soft, no evidence EXTREMITIES: 2+ peripheral pulses with no evidence of peripheral edema and no calf tenderness noted. NEUROLOGIC patient is awake, alert and oriented X3. . - Labs CBC & Chem 7: 07/23/18 05:53 07/23/18 05:53 Labs: Abnormal Lab Results - Last 24 Hours (Table) 07/22/18 07/22/18 07/23/18 Range/Units 16:35 20:30 01:51 WBC (3.8-10.6) k/uL Neutrophils # (1.3-7.7) k/uL Sodium (137-145) mmol/L BUN (9-20) mg/dL Glucose (74-99) mg/dL POC Glucose (mg/dL) 275 H 185 H 161 H (75-99) mg/dL 07/23/18 07/23/18 07/23/18 Range/Units 05:46 05:53 05:53 WBC 11.1 H (3.8-10.6) k/uL Neutrophils # 8.6 H (1.3-7.7) k/uL Sodium 136 L (137-145) mmol/L BUN 25 H (9-20) mg/dL Glucose 346 H (74-99) mg/dL POC Glucose (mg/dL) 343 H (75-99) mg/dL 07/23/18 07/23/18 Range/Units 06:15 11:37 WBC (3.8-10.6) k/uL Neutrophils # (1.3-7.7) k/uL Sodium (137-145) mmol/L BUN (9-20) mg/dL Glucose (74-99) mg/dL POC Glucose (mg/dL) 341 H 207 H (75-99) mg/dL Assessment and Plan Plan: Assessment and plan #1 Symptoms of chest discomfort for 4-5 day duration, suggestive of acute coronary syndrome. EKG shows normal sinus tachycardia with changes in the inferior lateral leads. Troponins 0.40, 0.45, 0.70. #2 hypertension #3 diabetes #4 hyperlipidemia #5 prior history of smoking #6 known history of coronary artery disease with prior inferior wall myocardial infarction and RCA stents placement. Plan Patient was taken to cardiac catheterization lab yesterday where he underwent angioplasty and stenting of the right coronary artery. From cardiology's perspective, he may be able to be discharged home today. We will make him a follow-up appointment to see Dr. OCTAVIO Ramirez in the office post discharge.discharge medications include aspirin 81 mg daily, Norvasc 5 mg daily , atenolol 50 mg daily, Lipitor 40 mg daily,losartan 25 mg daily,Brilinta 90 mg one tablet by mouth twice a day and sublingual nitroglycerin as needed for chest pain. DNP note has been reviewed, I agree with a documented findings and plan of care. Patient was seen and examined.
[2018-07-23 14:00] LABS: Appearance,Urine Clear (Clear); Bacteria,Urine Rare /hpf; Bilirubin,Urine Negative (Negative); Blood,Urine Negative (Negative); Color,Urine Yellow; Glucose,Urine (UA) 3+ (Negative); Ketones,Urine Negative (Negative); Leukocyte Esterase,Urine Large (Negative); Mucus,Urine Rare /hpf; Nitrite,Urine Negative (Negative); PH, Urine 5.5 (5.0-8.0); Protein,Urine Trace (Negative); Specific Gravity,Urine 1.023 (1.001-1.035); Squamous Epithelial Cell,Urine 8 /hpf (0-4); Urobilinogen,Urine <2.0 mg/dL (<2.0); WBC,Urine 4 /hpf (0-5)
--- NOTE | 2018-07-23 14:21 | P.DS ---
Providers Date of admission: 07/21/18 18:27 Expected date of discharge: 07/23/18 Attending physician: Sharlene Abel Consults: 07/21/18 18:25 Consult Physician Urgent Consulting Provider: Mansoor Bajwa Consult Reason/Comments: nstemi Do you want consulting provider notified?: Yes 07/22/18 10:54 Consult Physician Routine Consulting Provider: [facility] Consult Reason/Comments: Post Interventional patient Do you want consulting provider notified?: Already Contacted Primary care physician: Sharlene Abel [facility] Course: Discharge summary 1. Chest pain. Chest x-ray completed showing chronic right diaphragm elevation is analysis. No change. Troponin level 0.40 and 0.45. EKG shows normal sinus tachycardia with changes in the inferior lateral leads per cardiology. Patient started on heparin drip. 2-D echo has been ordered. Planning for cardiac catheterization today per cardiology. 2-D echo completed showing EF of 45-50%. Patient underwent heart catheterization yesterday and received a stent to the mid and distal RCA. Patient will be DC'd home on anticoagulation Brilinta 2. History of essential hypertension. Continue home medication of Norvasc, atenolol, Chlorthalidone and Imdur. Cardiology has added Cozaar 3. Diabetes mellitus type 2. Blood Sugar upon arrival to 396 Hemoglobin A1c 12.3. Home meds resumed. Blood sugar improved. 4. History history of coronary artery disease with prior inferior wall myocardial infarction and RCA stent placement. 5. History of CVA. Patient remains right side dominant 6. Chronic respiratory failure with hypoxia. Patient does wear home O2 7. History of hyperlipidemia. Patient currently on Lipitor and fenofibrate. Hospital course This is a 78-year-old male patient presented to the emergency room with complaints of chest discomfort. Patient states that the pain has been going on intermittently for 3-4 days. Patient has a known past medical history of asthma , CVA, diabetes mellitus, DVT, GERD, hyperlipidemia, hypertension, myocardial infarction, sleep apnea, heart catheterization, hernia repair and joint replacement. Patient also presents with daughter and his caregiver. Patient does wear home O2. Chest x-ray completed showing chronic right diaphragm elevation and could relate paralysis. No change. EKG completed showing sinus rhythm with premature atrial complexes. Left axis deviation. Incomplete right bundle branch block. Moderate voltage criteria for LVH, may be normal variant. Troponins 0.457, 0.709. Patient was started on heparin drip. 2-D echo has been ordered. Cardiology services consulted. Per cardiology services planning for cardiac catheterization today. Patient denies chest pain or shortness of breath. Denies any nausea vomiting or diarrhea. Denies any urinary burning or frequency. On 07/23/2018 patient has been cleared for discharge from cardiology standpoint. Patient will follow up with cardiology in office. Discharge medications per cardiology include aspirin, Norvasc, atenolol, Lipitor, losartarn and Brillenta. Patient's WBC slightly elevated at 11.1. Patient will follow-up closely with primary care provider Dr. Abel and drop urine sample off at office for further evaluation. At this time patient denies chest pain or shortness breath. Patient denies nausea vomiting or diarrhea. Patient denies any urinary burning or frequency. I performed an examination of the patient and discussed their management with the Nurse Practitioner. I have reviewed the Nurse Practitioner's notes and agree with the documented findings and plan of care Patient Condition at Discharge: Stable Plan - Discharge Summary Discharge Rx Participant: Yes New Discharge Prescriptions: New Aspirin 81 mg PO DAILY #30 chew Atorvastatin [Lipitor] 40 mg PO HS #30 tab Losartan [Cozaar] 25 mg PO DAILY #30 tab Nitroglycerin Sl Tabs [Nitrostat] 0.4 mg SUBLINGUAL Q5M PRN #25 tab PRN Reason: Chest Pain Ticagrelor [Brilinta] 90 mg PO BID #60 tab Continue Omeprazole 20 mg PO DAILY Docusate [Colace] 200 mg PO BID PRN PRN Reason: Constipation Insulin Aspart [NovoLOG] 40 unit SQ AC-TID Atenolol [Tenormin] 50 mg PO DAILY Meclizine [Antivert] 25 mg PO Q8HR PRN PRN Reason: Vertigo Insulin Detemir [Levemir] 100 unit SQ DAILY Hydrocodone/Acetaminophen [[place] 7.5-325] 1 tab PO Q8H PRN PRN Reason: Pain amLODIPine [Norvasc] 5 mg PO DAILY Isosorbide Mononitrate ER [Imdur] 30 mg PO DAILY Gemfibrozil [Lopid] 600 mg PO AC-BID metFORMIN HCL [Glucophage] 1,000 mg PO BID #0 Discontinued Atorvastatin Calcium [Lipitor] 20 mg PO HS Chlorthalidone 25 mg PO DAILY Discharge Medication List Atenolol [Tenormin] 50 mg PO DAILY 07/21/18 [History] Docusate [Colace] 200 mg PO BID PRN 07/21/18 [History] Gemfibrozil [Lopid] 600 mg PO AC-BID 07/21/18 [History] Hydrocodone/Acetaminophen [[place] 7.5-325] 1 tab PO Q8H PRN 07/21/18 [History] Insulin Aspart [NovoLOG] 40 unit SQ AC-TID 07/21/18 [History] Insulin Detemir [Levemir] 100 unit SQ DAILY 07/21/18 [History] Isosorbide Mononitrate ER [Imdur] 30 mg PO DAILY 07/21/18 [History] Meclizine [Antivert] 25 mg PO Q8HR PRN 07/21/18 [History] Omeprazole 20 mg PO DAILY 07/21/18 [History] amLODIPine [Norvasc] 5 mg PO DAILY 07/21/18 [History] Aspirin 81 mg PO DAILY #30 chew 07/23/18 [Rx] Atorvastatin [Lipitor] 40 mg PO HS #30 tab 07/23/18 [Rx] Losartan [Cozaar] 25 mg PO DAILY #30 tab 07/23/18 [Rx] Nitroglycerin Sl Tabs [Nitrostat] 0.4 mg SUBLINGUAL Q5M PRN #25 tab 07/23/18 [Rx ] Ticagrelor [Brilinta] 90 mg PO BID #60 tab 07/23/18 [Rx] metFORMIN HCL [Glucophage] 1,000 mg PO BID #0 07/23/18 [Rx] Follow up Appointment(s)/Referral(s): Sharlene Abel MD [Primary Care Provider] - 07/30/18 10:45 am (Thursday) Kathryn Fuentes MD [STAFF PHYSICIAN] - 07/30/18 3:30 pm (Thursday) Patient Instructions/Handouts: *Sur[facility] - After Heart Catheterization - [employer] Manager Instructions, Left Heart Catheterization (DC) Activity/Diet/Wound Care/Special Instructions: pt has a $0 copay for brillinta Diet heart healthy Discharge Disposition: HOME SELF-CARE
[2018-07-23 14:39] VITALS: BMI 35.6
[2018-07-23] MEDS ORDERED: ATORVASTATIN 40 MG TAB PO SCH (21:00)
== END 2018-07-23 15:03 | disposition home or self-care (01) | DRG 247 ==
LOC: EC 16:20 → 6SEL 18:27
PROVIDERS: ADMIT Internal Medicine; ATTEND Internal Medicine
PROC: B211YZZ Fluoroscopy of Multiple Coronary Arteries using Other Contrast (ICD-10-PCS; 2018-07-22)
PROC: 027034Z Dilation of Coronary Artery, One Artery with Drug-eluting Intraluminal Device, Percutaneous Approach (ICD-10-PCS; principal; 2018-07-22 08:30)
PROC: 4A023N7 Measurement of Cardiac Sampling and Pressure, Left Heart, Percutaneous Approach (ICD-10-PCS; 2018-07-22 08:30)
DX: I21.4 Non-ST elevation (NSTEMI) myocardial infarction (principal); J96.11 Chronic respiratory failure with hypoxia; J98.6 Disorders of diaphragm; I45.10 Unspecified right bundle-branch block; E11.9 Type 2 diabetes mellitus without complications; I25.10 Atherosclerotic heart disease of native coronary artery without angina pectoris; I10 Essential (primary) hypertension; I25.2 Old myocardial infarction; J45.909 Unspecified asthma, uncomplicated; E78.5 Hyperlipidemia, unspecified; I49.1 Atrial premature depolarization; G47.30 Sleep apnea, unspecified; G89.29 Other chronic pain; M54.9 Dorsalgia, unspecified; K21.9 Gastro-esophageal reflux disease without esophagitis; F40.240 Claustrophobia; Z99.81 Dependence on supplemental oxygen; Z79.4 Long term (current) use of insulin; Z79.899 Other long term (current) drug therapy; Z87.891 Personal history of nicotine dependence; Z90.49 Acquired absence of other specified parts of digestive tract; Z95.5 Presence of coronary angioplasty implant and graft; Z86.73 Personal history of transient ischemic attack (TIA), and cerebral infarction without residual deficits; Z96.651 Presence of right artificial knee joint; Z98.42 Cataract extraction status, left eye; Z98.41 Cataract extraction status, right eye
CPT/HCPCS: 36415; 71046; 80053; 80061; 81001; 82150; 82550; 82553; 83036; 83690; 83735; 84484; 85025; 85049; 85610; 85730; 93005; 93306; 93458; 96374; 99291

== ENCOUNTER 2018-08-26 06:27 | Day surgery (SDC) | payer MEDICARE, OTHER ==
[~2018-08-26 06:27] MED LIST: ALPRAZolam 0.25 MG TAB PO PRN; ALPRAZolam 0.5 MG TAB PO PRN; NITROGLYCERIN SL TABS 0.4 MG TAB SUBLINGUAL PRN; SODIUM CHLORIDE 0.9% 1,000 ML in EMPTY BAG 1 BAG IV ONE
[2018-08-26] MEDS ORDERED: ATORVASTATIN 80 MG TAB PO ONE (07:00)
[2018-08-26] MEDS ORDERED: ASPIRIN 325 MG TAB PO ONE (07:00)
[2018-08-26] MEDS: INSULIN ASPART 100 UNIT/ML 1 ML 10 ML VIAL SQ ONE ×2 (07:10→09:00)
[2018-08-26 07:16] LABS: Basophils # (A) 0.1 k/uL (0-0.2); Basophils % (A) 1 %; Eosinophils # (A) 0.3 k/uL (0-0.7); Eosinophils % (A) 4 %; HGB 14.9 gm/dL (13.0-17.5); Lymphocytes # (A) 1.7 k/uL (1.0-4.8); Lymphocytes % (A) 24 %; MCH 29.8 pg (25.0-35.0); MCHC 32.4 g/dL (31.0-37.0); MCV 91.9 fL (80.0-100.0); Monocytes # (A) 0.6 k/uL (0-1.0); Monocytes % (A) 8 %; Neutrophils # (A) 4.5 k/uL (1.3-7.7); Neutrophils % (A) 61 %; Platelet Count 189 k/uL (150-450); RDW 13.5 % (11.5-15.5); WBC 7.4 k/uL (3.8-10.6)
[2018-08-26 07:17] LABS: Glucose,Whole Blood 267 mg/dL (75-99)
[2018-08-26 07:29] LABS: Anion Gap 12 mmol/L; Blood Urea Nitrogen 16 mg/dL (9-20); Calcium 9.3 mg/dL (8.4-10.2); Carbon Dioxide 24 mmol/L (22-30); Chloride 105 mmol/L (98-107); Glucose 323 mg/dL (74-99); Potassium 4.6 mmol/L (3.5-5.1); Sodium 141 mmol/L (137-145)
[2018-08-26] MEDS ORDERED: SODIUM CHLORIDE 0.9% 1,000 ML IV ONE (07:35)
[2018-08-26] MEDS ORDERED: MIDAZOLAM 2 MG/2 ML VIAL IV ONE (07:38)
[2018-08-26] MEDS ORDERED: diphenhydrAMINE 50 MG/ML 1 ML VIAL IVP ONE (07:38)
[2018-08-26] MEDS ORDERED: LIDOCAINE 1% INJ 10MG/ML (20 ML MDV) SQ ONE (07:41)
[2018-08-26] MEDS ORDERED: NITROGLYCERIN SL TABS 0.4 MG TAB SUBLINGUAL ONE (07:42)
[2018-08-26] MEDS: VERAPAMIL SYRINGE (5 MG/10 ML) INTRAARTER ONE ×2 (07:43→08:01)
[2018-08-26] MEDS ORDERED: BIVALIRUDIN BOLUS 250 MG/50 ML IV ONE (07:50)
[2018-08-26] MEDS ORDERED: BIVALIRUDIN 250 MG in SODIUM CHLORIDE 0.9% 50 ML IV ONE (07:51)
[2018-08-26] MEDS ORDERED: NITROGLYCERIN 1000MCG/10ML SYRINGE INTRACORON ONE (07:59)
[2018-08-26] MEDS ORDERED: IOPAMIDOL-370 100ML BTL INJ ONE (08:01)
[2018-08-26] MEDS ORDERED: TICAGRELOR 90 MG TAB PO ONE (08:01)
[2018-08-26] MEDS ORDERED: ATROPINE SULFATE 0.1 MG/ML 10ML SYRINGE IV PRN (08:09)
[2018-08-26] MEDS ORDERED: MAG HYDROX/AL HYDROX/SIMETH 30 ML CUP PO PRN (08:09)
[2018-08-26] MEDS ORDERED: NITROGLYCERIN SL TABS 0.4 MG TAB SUBLINGUAL PRN ×2 (08:09→08:18)
[2018-08-26] MEDS ORDERED: RX INFO: IV CONTRAST WAS GIVEN 1 EACH MISC MISCELLANE PRN (08:09)
[2018-08-26] MEDS ORDERED: HYDROcodone/APAP 7.5-325MG 1 EACH TAB PO PRN (08:18)
[2018-08-26] MEDS ORDERED: DOCUSATE 100 MG CAP PO PRN (08:18)
[2018-08-26 08:30] LABS: Glucose,Whole Blood 274 mg/dL (75-99)
--- NOTE | 2018-08-26 08:33 | CC ---
CARDIAC CATHETERIZATION REPORT DATE OF SERVICE: 08/26/2018 PROCEDURE: 1. Selective coronary angiography of the right coronary artery. 2. PTCA and stenting of major diagonal branch with a drug-eluting stent. PERFORMED BY: Dr. Trisha Ramirez. Moderate conscious sedation time was 23 minutes. The patient was administered Versed and Benadryl and his oxygen saturation, hemodynamics and EKG were monitored closely. CLINICAL INFORMATION: Mr. Josh Jaquez is a 78-year-old gentleman who was seen and evaluated by me on July 22 when he presented with acute inferior ID and underwent stenting of a very tortuous and difficult thrombus laden super dominant RCA. He was noted to have a major diagonal stenosis of 80% to 90% and was brought in at this time for elective PCI. He presented with a non-ST elevation ID on July 22 and underwent stenting at that time of RCA. He was brought in for elective PCI and also to assess the patency of RCA. PROCEDURE NOTE: Under local anesthesia and strict aseptic precautions, a 6-Frisian introducer was placed in the right radial artery. I used a JR4 catheter to perform selective coronary angiography of the right coronary artery and noted that the vessel was widely patent at the site of previous stenting. I then turned my attention to the LAD/diagonal system. I used a JL3.5 guide catheter to cannulate the left coronary artery. I used a run- through wire to cross the lesion. Without predilatation, I advanced and positioned a 12 mm long 2.5 caliber Xience stent and deployed this at 13 atmospheres. Patient did not have any chest pain or EKG changes. He had excellent angiographic result. The sheath was taken out and TR band applied as per protocol with good hemostasis and saturation in the fingers of the right hand was 93%. The patient was sent to the room in a stable condition. He was already on aspirin and Brilinta. Additional 90 mg of Brilinta was given. He also received Angiomax bolus and infusion as per protocol. Excellent angiographic result without complication was achieved of the major diagonal branch and a 2.5 caliber 12 mm long drug-eluting stent was deployed. The RCA at the site of previous stenting was widely patent. RECOMMENDATION: The patient will be discharged tomorrow if stable on the same medical regimen and results were discussed with the patient and his family, specifically his daughter. MMODL / IJN: [id number] /
[2018-08-26] MEDS: INSULIN ASPART 100 UNIT/ML 1 ML 10 ML VIAL SQ SCH ×6 (08:59→21:22)
[2018-08-26] MEDS ORDERED: amLODIPine 5 MG TAB PO STA (09:04)
[2018-08-26] MEDS ORDERED: ATENOLOL 50 MG TAB PO STA (09:05)
[2018-08-26] MEDS ORDERED: ISOSORBIDE MONONITRATE ER 30 MG TAB.ER.24H PO STA (09:06)
[2018-08-26] MEDS ORDERED: LOSARTAN 25 MG TAB PO STA (09:07)
[2018-08-26 11:50] LABS: Glucose,Whole Blood 171 mg/dL (75-99)
[2018-08-26] MEDS: SODIUM CHLORIDE 0.9% 1,000 ML IV SCH ×2 (11:54→20:30)
[2018-08-26 14:27] VITALS: BMI 35.8
[2018-08-26 17:22] LABS: Glucose,Whole Blood 107 mg/dL (75-99)
[2018-08-26] MEDS ORDERED: ONDANSETRON 4 MG/2 ML VIAL IVP STA (18:30)
[2018-08-26] MEDS: INSULIN DETEMIR 100 UNIT/ML 10 ML VIAL SQ SCH (19:24)
[2018-08-26] MEDS: TICAGRELOR 90 MG TAB PO SCH (20:42)
[2018-08-26] MEDS ORDERED: ZOLPIDEM 5 MG TAB PO PRN (21:00)
[2018-08-26] MEDS ORDERED: ATORVASTATIN 40 MG TAB PO SCH (21:00)
[2018-08-26 21:22] LABS: Glucose,Whole Blood 148 mg/dL (75-99)
[2018-08-27 06:18] LABS: Glucose,Whole Blood 205 mg/dL (75-99)
[2018-08-27 06:25] LABS: Basophils # (A) 0.1 k/uL (0-0.2); Basophils % (A) 1 %; Eosinophils # (A) 0.3 k/uL (0-0.7); Eosinophils % (A) 3 %; HCT 47.5 % (39.0-53.0); HGB 15.2 gm/dL (13.0-17.5); Lymphocytes # (A) 2.1 k/uL (1.0-4.8); Lymphocytes % (A) 20 %; MCH 29.7 pg (25.0-35.0); MCV 92.7 fL (80.0-100.0); Mean Platelet Volume 8.9; Monocytes # (A) 0.7 k/uL (0-1.0); Monocytes % (A) 6 %; Neutrophils % (A) 68 %; Platelet Count 217 k/uL (150-450); RBC 5.13 m/uL (4.30-5.90); RDW 13.5 % (11.5-15.5); WBC 10.4 k/uL (3.8-10.6)
[2018-08-27 06:40] LABS: Anion Gap 11 mmol/L; Blood Urea Nitrogen 17 mg/dL (9-20); Calcium 9.4 mg/dL (8.4-10.2); Carbon Dioxide 27 mmol/L (22-30); Chloride 99 mmol/L (98-107); Glucose 225 mg/dL (74-99); Potassium 4.6 mmol/L (3.5-5.1); Sodium 137 mmol/L (137-145)
[2018-08-27] MEDS: INSULIN ASPART 100 UNIT/ML 1 ML 10 ML VIAL SQ SCH ×2 (06:47)
[2018-08-27] MEDS ORDERED: PANTOPRAZOLE 40 MG TABLET PO SCH (07:30)
[2018-08-27] MEDS ORDERED: ASPIRIN 81 MG PO SCH (09:00)
[2018-08-27] MEDS ORDERED: amLODIPine 5 MG TAB PO SCH (09:00)
[2018-08-27] MEDS ORDERED: LOSARTAN 25 MG TAB PO SCH (09:00)
[2018-08-27] MEDS ORDERED: ATENOLOL 50 MG TAB PO SCH (09:00)
[2018-08-27] MEDS ORDERED: ISOSORBIDE MONONITRATE ER 30 MG TAB.ER.24H PO SCH (09:00)
[2018-08-27] MEDS: TICAGRELOR 90 MG TAB PO SCH (09:26)
[2018-08-27] MEDS: INSULIN DETEMIR 100 UNIT/ML 10 ML VIAL SQ SCH (09:26)
[2018-08-27 10:40] VITALS: BP 129/72; PULSE 77; RESP 16; TEMP 98.8
== END 2018-08-27 11:30 | disposition home or self-care (01) ==
LOC: CATHCVL 06:27 → 3SCARD 08:03 → CATHCVL 08-27 11:30
PROVIDERS: ATTEND Internal Medicine Interventional Cardiology
DX: I25.10 Atherosclerotic heart disease of native coronary artery without angina pectoris (principal); I10 Essential (primary) hypertension; I25.2 Old myocardial infarction; Z95.5 Presence of coronary angioplasty implant and graft; F17.210 Nicotine dependence, cigarettes, uncomplicated; E78.5 Hyperlipidemia, unspecified; E11.9 Type 2 diabetes mellitus without complications; E78.00 Pure hypercholesterolemia, unspecified; Z79.02 Long term (current) use of antithrombotics/antiplatelets; Z79.82 Long term (current) use of aspirin; Z79.4 Long term (current) use of insulin; Z79.899 Other long term (current) drug therapy
CPT/HCPCS: 80048 ×2; 85025 ×2; C9600; C1887; C1769 ×2; C1894; C1874; J2250; J1200; J2405; J2001; J0583; Q9967

== ENCOUNTER → 2018-10-27 | Outpatient (CLI) | payer MEDICARE, OTHER ==
[2018-10-27 16:34] LABS: Albumin 4.1 g/dL (3.80-4.90); Albumin/Globulin Ratio 1.71 (1.20-2.10); Anion Gap 7.8 mmol/L (4.00-12.00); Calcium 8.8 mg/dL (8.7-10.3); Carbon Dioxide 26.2 mmol/L (21.6-31.8); Globulin 2.4 g/dL (2.1-3.7); Potassium 4.3 mmol/L (3.5-5.5); Total Bilirubin 0.2 mg/dL (0.3-1.2); Total Protein 6.5 g/dL (6.2-8.2)
[2018-10-28 12:00] LABS: Alt. alternata IgE Class CLASS 0; Alternaria alternata IgE <0.35 kU/L (<0.35); Asperg. fumagatus IgE <0.35 kU/L (<0.35); Asperg. fumagatus IgE Class CLASS 0; Bermuda Grass IgE <0.35 kU/L (<0.35); Birch(Com.Silvr) IgE <0.35 kU/L (<0.35); Birch(Com.Silvr) IgE Class CLASS 0; Cat Epith & Dander IgE <0.35 kU/L (<0.35); Cat Epith & Dander IgE Class CLASS 0; Clad herbarum IgE <0.35 kU/L (<0.35); Cockroach IgE <0.35 kU/L (<0.35); Cottonwood IgE <0.35 kU/L (<0.35); Dermato. Pteronyssinus IgE <0.35 kU/L (<0.35); Dermato. farinae IgE <0.35 kU/L (<0.35); Dermato. farinae IgE Class CLASS 0; Dog Dander IgE <0.35 kU/L (<0.35); Elm IgE <0.35 kU/L (<0.35); Maple (Box Elder) IgE <0.35 kU/L (<0.35); Maple (Box Elder) IgE Class CLASS 0; Mountain Cedar IgE <0.35 kU/L (<0.35); Mountain Cedar IgE Class CLASS 0; Mouse Urine IgE Class CLASS 0; Nettle IgE <0.35 kU/L (<0.35); Nettle IgE Class CLASS 0; Oak IgE <0.35 kU/L (<0.35); Penicillium notatum IgE Class CLASS 0; Rough Marshelder IgE <0.35 kU/L (<0.35); Rough Marshelder IgE Class CLASS 0; Timothy Grass IgE <0.35 kU/L (<0.35); White Ash IgE Class CLASS 0
[2018-10-29 12:31] LABS: Alpha 1 Anti-Trypsin 151 mg/dL (90 - 200)
[2018-11-01 20:32] LABS: Alternaria Alternata IgG 8.3 mcg/mL (< 13.6); Aspergillus fumigatus IgG Not detected (Not detected); Aureobasidium pullulans IgG 5.8 mcg/mL (< 13.6); Phoma ssp. IgG 13.1 mcg/mL (< 6.6); Saccaharomospora viridis Not detected (Not detected); Saccaharopoly. rectivirgula Not detected (Not detected)
== END | disposition home or self-care (01) ==
LOC: LABWHC1 11:36
PROVIDERS: ATTEND Nurse Practitioner Family
DX: J45.50 Severe persistent asthma, uncomplicated (principal)
CPT/HCPCS: 36415; 80053; 82103; 82104; 82785; 86001; 86003; 86606; 86609

== ENCOUNTER 2019-01-27 15:27 | Inpatient (IN) | payer MEDICARE, OTHER ==
[2019-01-27 15:36] VITALS: TEMP 98.4
[2019-01-27] MEDS ORDERED: SODIUM CHLORIDE 0.9% 1,000 ML IV STA (15:49)
[2019-01-27] MEDS ORDERED: IPRATROPIUM-ALBUTEROL 3 ML NEB INHALATION STA (15:50)
--- NOTE | 2019-01-27 15:59 | ED ---
General Adult HPI - General Chief complaint: Neuro Symptoms/Deficit Stated complaint: poss stroke/fall Time Seen by Provider: 01/27/19 15:30 Source: patient, RN notes reviewed Mode of arrival: wheelchair Limitations: no limitations - History of Present Illness Initial comments: This is a 78-year-old male who presents emergency Department with a past medical history significant for coronary artery disease and stenting. Patient comes in today because family believes he started slurring his speech. Daughter is in the room states the last time she saw him normal was yesterday morning. Daughter states that 2:30 this morning he had fallen and hit his head. He was not dazed and did not lose consciousness she did not is evaluated at that time to see if this patient was alert she just put him in bed and didn't pay any attention she states. Patient denies any complaints but the daughter states he always has that. Recent does sound like he has slurred speech. Patient is able to move all 4 extremities however the daughter says earlier it appeared that he was dragging his left leg. Patient denies chest pain difficulty breathing or shortness of breath per patient denies any recent fever chills or cough. Patient denies a headache. Patient denies abdominal pain patient denies nausea vomiting diarrhea. - Related Data Home Medications Medication Instructions Recorded Confirmed Atenolol [Tenormin] 50 mg PO DAILY 07/21/18 01/27/19 Docusate [Colace] 200 mg PO BID PRN 07/21/18 01/27/19 Insulin Aspart [NovoLOG] 50 unit SQ AC-TID 07/21/18 01/27/19 Insulin Detemir (Levemir) [Levemir] 100 unit SQ HS 07/21/18 01/27/19 Isosorbide Mononitrate ER [Imdur] 30 mg PO DAILY 07/21/18 01/27/19 Meclizine [Antivert] 25 mg PO Q8HR PRN 07/21/18 01/27/19 Omeprazole 20 mg PO DAILY 07/21/18 01/27/19 amLODIPine [Norvasc] 5 mg PO DAILY 07/21/18 01/27/19 Aspirin EC [Ecotrin] 325 mg PO DAILY 01/27/19 01/27/19 Fluticasone/Salmeterol [Advair 1 puff INHALATION RT-BID 01/27/19 01/27/19 500-50 Diskus] Furosemide [Lasix] 40 mg PO DAILY 01/27/19 01/27/19 HYDROcodone/APAP 7.5-325MG [[place] 1 tab PO TID PRN 01/27/19 01/27/19 7.5-325] Ipratropium-Albuterol Nebulize 3 ml INHALATION RT-QID 01/27/19 01/27/19 [Duoneb 0.5 mg-3 mg/3 ml Soln] Potassium Chloride 10 meq PO DAILY 01/27/19 01/27/19 Previous Rx's Medication Instructions Recorded Atorvastatin [Lipitor] 40 mg PO HS #30 tab 07/23/18 Losartan [Cozaar] 25 mg PO DAILY #30 tab 07/23/18 Nitroglycerin Sl Tabs [Nitrostat] 0.4 mg SUBLINGUAL Q5M PRN #25 tab 07/23/18 Ticagrelor [Brilinta] 90 mg PO BID #60 tab 07/23/18 metFORMIN HCL [Glucophage] 1,000 mg PO BID #0 07/23/18 Allergies Allergy/AdvReac Type Severity Reaction Status Date / Time No Known Allergies Allergy Verified 01/27/19 16:20 Review of Systems ROS Statement: Those systems with pertinent positive or pertinent negative responses have been documented in the HPI. ROS Other: All systems not noted in ROS Statement are negative. Past Medical History Past Medical History: COPD, Diabetes Mellitus, GERD/Reflux, Hyperlipidemia, Hypertension, Seizure Disorder, Thyroid Disorder Additional Past Medical History / Comment(s): gout, rt side dominant. vertigo,bronchitis, "poor circluation", chronic back pain, "wears o2 instead of using cpap machine" Last Myocardial Infarction Date:: unk History of Any Multi-Drug Resistant Organisms: None Reported Past Surgical History: Cholecystectomy, Heart Catheterization, Hernia Repair, Joint Replacement Additional Past Surgical History / Comment(s): ujmb hernia repair, vandana cataract sx," rt groin stents", colonoscopy, rt knee replacment, "nerves burned in back and epidural injections" Past Anesthesia/Blood Transfusion Reactions: Motion Sickness Additional Past Anesthesia/Blood Transfusion Reaction / Comment(s): clausterphobia Past Psychological History: Depression Smoking Status: Never smoker - Past Family History Mother History Unknown: Yes Father History Unknown: Yes General Exam - General Exam Comments Initial Comments: GENERAL: Patient is well-developed and well-nourished. Patient is nontoxic and well- hydrated and is in no acute distress. ENT: Neck is soft and supple. No significant lymphadenopathy is noted. Oropharynx is clear. Moist mucous membranes. Neck has full range of motion without eliciting any pain. EYES: The sclera were anicteric and conjunctiva were pink and moist. Extraocular movements were intact and pupils were equal round and reactive to light. Eyelids were unremarkable. PULMONARY: Unlabored respirations. Good breath sounds bilaterally. No audible rales rhonchi or wheezing was noted. CARDIOVASCULAR: There is a regular rate and rhythm without any murmurs gallops or rubs. Femoral pulses are equal bilaterally ABDOMEN: Soft and nontender with normal bowel sounds. No palpable organomegaly was noted. There is no palpable pulsatile mass. SKIN: Skin is clear with no lesions or rashes and otherwise unremarkable. NEUROLOGIC: Patient is alert and oriented x3. Cranial nerves II through XII are grossly intact. Motor and sensory are also intact. Slurred speech. Symmetrical smile. MUSCULOSKELETAL: Normal extremities with adequate strength and full range of motion. No lower extremity swelling or edema. No calf tenderness. LYMPHATICS: No significant lymphadenopathy is noted PSYCHIATRIC: Normal psychiatric evaluation. Limitations: no limitations Course Vital Signs 01/27/19 01/27/19 01/27/19 15:30 15:44 15:55 Temperature 98.4 F Pulse Rate 91 86 Respiratory 18 Rate Blood Pressure 147/84 O2 Sat by Pulse 92 L 94 L Oximetry 01/27/19 01/27/19 01/27/19 16:00 16:08 17:00 Temperature Pulse Rate 87 88 Respiratory 16 Rate Blood Pressure 142/101 150/65 O2 Sat by Pulse 97 91 L Oximetry Medical Decision Making - Medical Decision Making EKG shows sinus rhythm at 86 bpm MI interval is 210 QRS is 98 QT interval 374 QTC is 447. Patient's EKG shows no ST segment elevation. CT of the brain is normal. CTA shows some narrowing but minimal. I spoke with the patient he did not want to be transferred I spoke with Dr. Abel he was okay with admitting the patient. No TPA was indicated in this patient because the symptoms were greater than 24 hours. - Lab Data Result diagrams: 01/27/19 16:00 01/27/19 16:00 Lab Results 01/27/19 01/27/19 01/27/19 Range/Units 16:00 16:00 16:00 WBC 9.3 (3.8-10.6) k/uL RBC 5.46 (4.30-5.90) m/uL Hgb 15.5 (13.0-17.5) gm/dL Hct 49.9 (39.0-53.0) % MCV 91.4 (80.0-100.0) fL MCH 28.4 (25.0-35.0) pg MCHC 31.0 (31.0-37.0) g/dL RDW 14.1 (11.5-15.5) % Plt Count 247 (150-450) k/uL Neutrophils % 68 % Lymphocytes % 16 % Monocytes % 8 % Eosinophils % 5 % Basophils % 1 % Neutrophils # 6.3 (1.3-7.7) k/uL Lymphocytes # 1.5 (1.0-4.8) k/uL Monocytes # 0.8 (0-1.0) k/uL Eosinophils # 0.4 (0-0.7) k/uL Basophils # 0.1 (0-0.2) k/uL PT 10.3 (9.0-12.0) sec INR 1.0 (<1.2) APTT 23.9 (22.0-30.0) sec Sodium 139 (137-145) mmol/L Potassium 4.8 (3.5-5.1) mmol/L Chloride 101 (98-107) mmol/L Carbon Dioxide 28 (22-30) mmol/L Anion Gap 10 mmol/L BUN 19 (9-20) mg/dL Creatinine 0.83 (0.66-1.25) mg/dL Est GFR (CKD-EPI)AfAm >90 (>60 ml/min/1.73 sqM) Est GFR (CKD-EPI)NonAf 86 (>60 ml/min/1.73 sqM) Glucose 230 H (74-99) mg/dL Calcium 9.8 (8.4-10.2) mg/dL Total Bilirubin 0.8 (0.2-1.3) mg/dL AST 44 (17-59) U/L ALT 50 (21-72) U/L Alkaline Phosphatase 118 (38-126) U/L Troponin I (0.000-0.034) ng/mL Total Protein 7.4 (6.3-8.2) g/dL Albumin 3.9 (3.5-5.0) g/dL 01/27/19 Range/Units 16:00 WBC (3.8-10.6) k/uL RBC (4.30-5.90) m/uL Hgb (13.0-17.5) gm/dL Hct (39.0-53.0) % MCV (80.0-100.0) fL MCH (25.0-35.0) pg MCHC (31.0-37.0) g/dL RDW (11.5-15.5) % Plt Count (150-450) k/uL Neutrophils % % Lymphocytes % % Monocytes % % Eosinophils % % Basophils % % Neutrophils # (1.3-7.7) k/uL Lymphocytes # (1.0-4.8) k/uL Monocytes # (0-1.0) k/uL Eosinophils # (0-0.7) k/uL Basophils # (0-0.2) k/uL PT (9.0-12.0) sec INR (<1.2) APTT (22.0-30.0) sec Sodium (137-145) mmol/L Potassium (3.5-5.1) mmol/L Chloride (98-107) mmol/L Carbon Dioxide (22-30) mmol/L Anion Gap mmol/L BUN (9-20) mg/dL Creatinine (0.66-1.25) mg/dL Est GFR (CKD-EPI)AfAm (>60 ml/min/1.73 sqM) Est GFR (CKD-EPI)NonAf (>60 ml/min/1.73 sqM) Glucose (74-99) mg/dL Calcium (8.4-10.2) mg/dL Total Bilirubin (0.2-1.3) mg/dL AST (17-59) U/L ALT (21-72) U/L Alkaline Phosphatase (38-126) U/L Troponin I <0.012 (0.000-0.034) ng/mL Total Protein (6.3-8.2) g/dL Albumin (3.5-5.0) g/dL Disposition Clinical Impression: Cerebrovascular accident Disposition: ADMITTED IP TO THIS HOSP Referrals: Sharlene Abel MD [Primary Care Provider] - 1-2 days Time of Disposition: 18:15
[2019-01-27 16:06] LABS: Basophils # (A) 0.1 k/uL (0-0.2); Basophils % (A) 1 %; Eosinophils # (A) 0.4 k/uL (0-0.7); Eosinophils % (A) 5 %; HCT 49.9 % (39.0-53.0); HGB 15.5 gm/dL (13.0-17.5); Lymphocytes # (A) 1.5 k/uL (1.0-4.8); Lymphocytes % (A) 16 %; MCH 28.4 pg (25.0-35.0); MCV 91.4 fL (80.0-100.0); Mean Platelet Volume 9.2; Monocytes # (A) 0.8 k/uL (0-1.0); Monocytes % (A) 8 %; Neutrophils # (A) 6.3 k/uL (1.3-7.7); Neutrophils % (A) 68 %; Platelet Count 247 k/uL (150-450); RBC 5.46 m/uL (4.30-5.90); RDW 14.1 % (11.5-15.5); WBC 9.3 k/uL (3.8-10.6)
[2019-01-27 16:14] LABS: Partial Thromboplastin Time 23.9 sec (22.0-30.0); Prothrombin Time 10.3 sec (9.0-12.0)
[2019-01-27 16:20] LABS: ALT 50 U/L (21-72); AST 44 U/L (17-59); Albumin 3.9 g/dL (3.5-5.0); Alkaline Phosphatase 118 U/L (38-126); Anion Gap 10 mmol/L; Blood Urea Nitrogen 19 mg/dL (9-20); Calcium 9.8 mg/dL (8.4-10.2); Carbon Dioxide 28 mmol/L (22-30); Chloride 101 mmol/L (98-107); Glucose 230 mg/dL (74-99); Potassium 4.8 mmol/L (3.5-5.1); Sodium 139 mmol/L (137-145); Total Bilirubin 0.8 mg/dL (0.2-1.3); Total Protein 7.4 g/dL (6.3-8.2)
--- NOTE | 2019-01-27 17:16 | XR ---
EXAMINATION TYPE: XR chest 2V DATE OF EXAM: 01/27/2019 COMPARISON: 09/22/2018 HISTORY: Weakness TECHNIQUE: Frontal and lateral views of the chest are obtained. FINDINGS: There is no heart failure nor confluent pneumonic infiltrate. Costophrenic angles are priscilla r. There is elevated right diaphragm. There are no hilar masses. Bony thorax is intact. IMPRESSION: Mild chronic elevation of the right diaphragm. No acute lung disease. No change.
[2019-01-27 17:26] VITALS: RESP 16
--- NOTE | 2019-01-27 17:27 | CT ---
EXAMINATION TYPE: CT brain wo con for TPA DATE OF EXAM: 01/27/2019 COMPARISON: 11/29/2016 HISTORY: weakness and confusion CT DLP: 1453 mGycm Automated exposure control for dose reduction was used. FINDINGS: There is cerebral cortical atrophy. There is no mass effect nor midline shift. There is no sign of in tracranial hemorrhage. The calvarium is intact. IMPRESSION: CEREBRAL ATROPHY. NO ACUTE INTRACRANIAL ABNORMALITY. MUCUS RETENTION CYSTS ARE STABLE IN THE LEFT MAX ILLARY SINUS.
--- NOTE | 2019-01-27 17:33 | CT ---
EXAMINATION TYPE: CT angio head neck DATE OF EXAM: 01/27/2019 HISTORY: weakness and confusion COMPARISON: CT DLP: 873.7 mGycm. Automated Exposure Control for Dose Reduction was Utilized. TECHNIQUE: CTA scan of the neck is performed with IV Contrast, patient injected with 65 mL of Isovue 370, axial images are obtained, coronal and sagittal reformatted images are reviewed. Three-D recons tructed images are created on an independent workstation and reviewed. FINDINGS: There is mild atheromatous change at the aortic arch. There is normal branching pattern of the great vessels. There is bilateral arterial flow in the subclavian arteries. There is asymmetric enlargement of the left thyroid lobe compared to the right. There is arterial flow in both vertebral arteries. There is arterial flow in the common internal and external carotid arteries. There is some atherosclerotic plaque at the carotid artery bifurcations. T here is tortuosity of the proximal internal carotid arteries. There is lumen narrowing less than 20% of the proximal internal carotid arteries bilaterally. There is no evidence of carotid or vertebral a rtery aneurysm or dissection. There is no hemodynamic stenosis. There is arterial flow in the anterior middle and posterior cerebral arteries. There is arterial flow in the vertebrobasilar artery system. There is normal contrast opacification of the venous sinuses. There is no sign of intracranial aneurysm or neovascularity. There is no hemodynamic stenosis. There is no mass effect. IMPRESSION: Mild atherosclerotic vascular disease. Less than 20% stenosis in both internal carotid arteries. No i ntracranial arterial abnormality seen.
[2019-01-27] MEDS ORDERED: ASPIRIN 325 MG TAB PO STA (18:16)
[2019-01-27 19:55] VITALS: BP 152/95; PULSE 79
[2019-01-28] MEDS ORDERED: ASPIRIN 325 MG TAB PO SCH (18:17)
== END 2019-01-27 20:00 | disposition left against medical advice (07) | DRG 66 ==
LOC: EC 15:27 → 3SCARD 18:16
PROVIDERS: ADMIT Internal Medicine; ATTEND Internal Medicine
DX: I63.9 Cerebral infarction, unspecified (principal); E11.9 Type 2 diabetes mellitus without complications; E78.5 Hyperlipidemia, unspecified; G40.909 Epilepsy, unspecified, not intractable, without status epilepticus; I10 Essential (primary) hypertension; I25.10 Atherosclerotic heart disease of native coronary artery without angina pectoris; R29.700 NIHSS score 0; Z96.651 Presence of right artificial knee joint; J44.9 Chronic obstructive pulmonary disease, unspecified; K21.9 Gastro-esophageal reflux disease without esophagitis; I25.2 Old myocardial infarction; Z79.02 Long term (current) use of antithrombotics/antiplatelets; Z79.4 Long term (current) use of insulin; Z79.82 Long term (current) use of aspirin; Z95.5 Presence of coronary angioplasty implant and graft; Z79.899 Other long term (current) drug therapy; Z90.49 Acquired absence of other specified parts of digestive tract
CPT/HCPCS: 36415; 70450; 70496; 70498; 71046; 80053; 84484; 85025; 85610; 85730; 93005; 94640; 96360; 99285

== ENCOUNTER 2020-10-22 06:10 | Day surgery (SDC) | payer MEDICARE, OTHER ==
[2020-10-18 10:35] VITALS: BMI 37.4
[~2020-10-22 06:10] MED LIST changes: -ALPRAZolam 0.25 MG TAB PO PRN; -ALPRAZolam 0.5 MG TAB PO PRN; +LACTATED RINGERS 1,000 ML IV SCH; +LIDOCAINE 1% (10MG/ML) FOR IV START INTRADERMA PRN; -NITROGLYCERIN SL TABS 0.4 MG TAB SUBLINGUAL PRN; -SODIUM CHLORIDE 0.9% 1,000 ML in EMPTY BAG 1 BAG IV ONE
[2020-10-22 07:13] VITALS: TEMP 97.5
[2020-10-22 07:27] LABS: Glucose,Whole Blood 131 mg/dL (75-99)
[2020-10-22] MEDS ORDERED: PROPOFOL 10 MG/ML 20 ML VIAL IV ONE (07:30)
[2020-10-22] MEDS ORDERED: LIDOCAINE 1% INJ 10MG/ML (20 ML MDV) ONE (07:30)
--- NOTE | 2020-10-22 07:58 | P.PCN ---
Date of Procedure: 10/22/20 Description of Procedure: BRIEF HISTORY: Patient is a 80-year-old male with multiple medical comorbidities including diabetes mellitus who presents for outpatient esophagogastroduodenoscopy for evaluation of symptoms of GERD/reflux and abdominal pain. Patient has history of reflux worsened over the past few months. He also reports left-sided abdominal pain. PROCEDURE PERFORMED: Esophagogastroduodenoscopy with biopsy. PREOPERATIVE DIAGNOSIS: Reflux, GERD, abdominal pain. ESTIMATED BLOOD LOSS: Minimal. IV sedation per anesthesia. PROCEDURE: After informed consent was obtained, the patient was brought into the endoscopy unit. IV sedation was administered by Anesthesia under continuous monitoring. Initially the Olympus GIF-190 video endoscope was inserted into the mouth. Esophagus intubated without any difficulty. It was gradually advanced into the stomach and duodenum and carefully examined. The bulb and the second part of the duodenum appeared normal, with biopsies taken to rule out celiac sprue. The scope at this time was withdrawn to the stomach, adequately insufflated with air, and upon careful examination, mucosa of the antrum, body, cardia and the fundus appeared normal, except for some mild scattered erythema in the antrum and body suggestive of mild gastritis with biopsies of the antrum and body taken. There is also a moderate amount of retained food noted in the entire examined stomach. The scope was then withdrawn into the esophagus. The GE junction was located at 42 cm from the incisors and biopsied. The esophagus appeared normal. There were no erosions or ulcerations seen and the patient tolerated the procedure well. IMPRESSION: 1. Mild gastritis. 2. Moderate amount of retained food debris in the stomach suggestive of gastroparesis. 3. Biopsies of the duodenum, antrum body and GE junction. RECOMMENDATIONS: The findings of this examination were discussed with the patient and his family. Okay to resume diet. Okay to resume medications including anticoagulation therapy. Suspicious for gastroparesis retained food in the stomach and diabetes mellitus, and patient would benefit from smaller meals as well as a low fiber low fat diet. Continue PPI therapy. Await pathology from biopsies. Follow up in the GI clinic as scheduled..
[2020-10-22 08:02] LABS: Glucose,Whole Blood 115 mg/dL (75-99)
[2020-10-22 08:18] VITALS: BP 148/82; PULSE 81; RESP 18
== END 2020-10-22 08:41 | disposition home or self-care (01) ==
LOC: ORWHC2ENDO 06:10
PROVIDERS: ATTEND Internal Medicine
DX: K29.70 Gastritis, unspecified, without bleeding (principal); K21.9 Gastro-esophageal reflux disease without esophagitis; I10 Essential (primary) hypertension; E11.51 Type 2 diabetes mellitus with diabetic peripheral angiopathy without gangrene; J44.9 Chronic obstructive pulmonary disease, unspecified; E78.5 Hyperlipidemia, unspecified; Z87.891 Personal history of nicotine dependence; R56.9 Unspecified convulsions; Z90.49 Acquired absence of other specified parts of digestive tract; Z98.890 Other specified postprocedural states; Z98.42 Cataract extraction status, left eye; Z98.41 Cataract extraction status, right eye; I25.2 Old myocardial infarction; I25.10 Atherosclerotic heart disease of native coronary artery without angina pectoris; Z86.73 Personal history of transient ischemic attack (TIA), and cerebral infarction without residual deficits; Z79.02 Long term (current) use of antithrombotics/antiplatelets; Z79.82 Long term (current) use of aspirin; Z79.4 Long term (current) use of insulin; Z79.891 Long term (current) use of opiate analgesic; Z79.899 Other long term (current) drug therapy; Z88.8 Allergy status to other drugs, medicaments and biological substances
CPT/HCPCS: 88305; 43239; J2001; J2704

== ENCOUNTER → 2021-05-01 | Outpatient (CLI) | payer MEDICARE, OTHER ==
[2021-05-02 01:47] LABS: Hemoglobin A1C 9.2 % (4.0-6.0)
[2021-05-02 05:12] LABS: African American GFR (CKD) 60.1 (60.0-200.0); Anion Gap 14.9 mmol/L (4.00-12.00); BUN/Creat Ratio 19.23 Ratio (12.00-20.00); Calcium 9.1 mg/dL (8.7-10.3); Carbon Dioxide 26.1 mmol/L (21.6-31.8); Non-African American GFR(CKD) 51.9 (60.0-200.0); Potassium 4.3 mmol/L (3.5-5.5)
== END | disposition home or self-care (01) ==
LOC: LABWHC1 15:41
PROVIDERS: ATTEND Family Medicine
DX: E11.65 Type 2 diabetes mellitus with hyperglycemia (principal)
CPT/HCPCS: 36415; 80048; 83036

== ENCOUNTER → 2021-05-09 | Outpatient (CLI) | payer MEDICARE, OTHER ==
--- NOTE | 2021-05-10 10:19 | MM ---
Reason for exam: clinical finding. Baseline mammogram. History: Patient history of other cancer. Physical Findings: Nurse did not find any significant physical abnormalities on exam. MG Diagnostic Mammo w CAD HILDA Bilateral MLO view(s) were taken. There are scattered fibroglandular densities. MLO only bilateral performed due to patient disposition positioning difficulties. These results were verbally communicated with the patient and result sheet given to the patient on 05/09/21. ASSESSMENT: Incomplete: need additional imaging evaluation, BI-RAD 0 RECOMMENDATION: Ultrasound of the left breast. (retroareolar for questionable discharge)
--- NOTE | 2021-05-10 10:20 | USB ---
Reason for exam: additional evaluation requested from abnormal screening. History: Patient history of other cancer. US Breast Limited LT Left limited breast ultrasound including focal area of concern, retroareolar and axilla demonstrates no sonographic finding. These results were verbally communicated with the patient and result sheet given to the patient on 05/09/21. ASSESSMENT: Benign, BI-RAD 2 RECOMMENDATION: Clinical management of the left breast. Manage patient on a clinical basis. Return as clinically indicated.
== END | disposition home or self-care (01) ==
LOC: RADMAMWWP 13:03
PROVIDERS: ATTEND Internal Medicine
DX: R92.8 Other abnormal and inconclusive findings on diagnostic imaging of breast (principal); Z85.9 Personal history of malignant neoplasm, unspecified
CPT/HCPCS: 77066

== ENCOUNTER 2021-05-30 05:49 | Inpatient (IN) | payer MEDICARE, OTHER ==
[2021-05-30] MEDS ORDERED: methylPREDNISolone SOD SUCCI 125 MG/2 ML VIAL IV STA (05:56)
[2021-05-30] MEDS ORDERED: IPRATROPIUM-ALBUTEROL 3 ML NEB INHALATION STA (05:56)
[2021-05-30] MEDS ORDERED: MORPHINE SULFATE 2 MG/ML SYRINGE IVP STA (05:57)
[2021-05-30] MEDS ORDERED: MORPHINE SULFATE 2 MG/ML SYRINGE IVP PRN (05:57)
[2021-05-30] MEDS ORDERED: IPRATROPIUM-ALBUTEROL 3 ML NEB INHALATION PRN ×2 (05:59→09:10)
--- NOTE | 2021-05-30 05:59 | ED ---
SOB HPI - General Chief Complaint: Shortness of Breath Stated Complaint: SOB Time Seen by Provider: 05/30/21 05:53 Source: patient, EMS, RN notes reviewed, old records reviewed Mode of arrival: EMS Limitations: no limitations - History of Present Illness Initial Comments: This is a 81-year-old male DF for evaluation patient Dese for evaluation of severe shortness of breath patient was more short of breath upon EMS arrival with history of COPD and worsening COPD today. Patient is without fever without travel history without significant tach. Patient is up-to-date on coronavirus vaccine. Patient has no significant recent hospitalization. No recent travel history or sick contacts. Patient does have history of last day without using CPAP, diabetes DVT on Eliquis, hypertension, and [place]. MD Complaint: shortness of breath, cough, anxiety -: hour(s) Severity: moderate Severity scale (1-10): 6 Consistency: constant Improves With: oxygen, bronchodilators Worsens With: exertion, movement Known History Of: COPD, asthma, recurrent pneumonia Context: recent URI, anxiety, recent illness Associated Symptoms: cough - Related Data Home Medications Medication Instructions Recorded Confirmed Docusate [Colace] 200 mg PO TID 07/21/18 05/30/21 Isosorbide Mononitrate ER [Imdur] 30 mg PO HS 07/21/18 05/30/21 Meclizine [Antivert] 25 mg PO BID 07/21/18 05/30/21 amLODIPine [Norvasc] 5 mg PO DAILY 07/21/18 05/30/21 atenoloL [Tenormin] 50 mg PO HS 07/21/18 05/30/21 Furosemide [Lasix] 40 mg PO BID 01/27/19 05/30/21 HYDROcodone/APAP 10-325MG [[place] 1 tab PO QID 10/08/20 05/30/21 10-325] Dicyclomine [Bentyl] 20 mg PO TID 10/18/20 05/30/21 Ammonium Lactate Lotion 1 applic TOPICAL QAM 05/30/21 05/30/21 [Lac-Hydrin 12% Lotion] Apixaban [Eliquis] 5 mg PO BID 05/30/21 05/30/21 Budesonide [Pulmicort] 0.5 mg INHALATION RT-BID 05/30/21 05/30/21 Cyclobenzaprine [Flexeril] 10 mg PO HS 05/30/21 05/30/21 Dapagliflozin Propanediol [Farxiga] 10 mg PO HS 05/30/21 05/30/21 Fluconazole [Diflucan] 150 mg PO DAILY 05/30/21 05/30/21 Formoterol Fumarate [Perforomist] 20 mcg INHALATION RT-BID 05/30/21 05/30/21 Gemfibrozil [Lopid] 600 mg PO AC-BID 05/30/21 05/30/21 Insulin NPH Human Isophane 50 units SQ TID@0500,1400,2100 05/30/21 05/30/21 [NovoLIN N] Ketoconazole 2% Shampoo [Nizoral] 1 applic TOPICAL MOWEFR 05/30/21 05/30/21 Lactulose 10 gm PO BID 05/30/21 05/30/21 Liraglutide [Victoza 3-Dwayne] 1.8 mg SQ DAILY 05/30/21 05/30/21 Losartan [Cozaar] 25 mg PO HS 05/30/21 05/30/21 Montelukast Sodium [Singulair] 10 mg PO HS 05/30/21 05/30/21 Mupirocin 2% Oint [Bactroban 2% 1 applic TOPICAL BID 05/30/21 05/30/21 Oint] Nystatin 100,000 Unit/gm Powd 1 applic TOPICAL TID 05/30/21 05/30/21 [Mycostatin Powder] Omeprazole [PriLOSEC] 40 mg PO DAILY 05/30/21 05/30/21 Potassium Chloride [Klor-Con 20] 20 meq PO HS 05/30/21 05/30/21 Rosuvastatin Calcium [Crestor] 5 mg PO DAILY 05/30/21 05/30/21 Yupelri 175 mcg INHALATION RT-DAILY 05/30/21 05/30/21 cilostazoL [Pletal] 50 mg PO BID 05/30/21 05/30/21 Previous Rx's Medication Instructions Recorded Atorvastatin [Lipitor] 40 mg PO HS #30 tab 07/23/18 Nitroglycerin Sl Tabs [Nitrostat] 0.4 mg SUBLINGUAL Q5M PRN #25 tab 07/23/18 Ticagrelor [Brilinta] 90 mg PO BID #60 tab 07/23/18 metFORMIN HCL [Glucophage] 1,000 mg PO BID #0 07/23/18 Allergies Allergy/AdvReac Type Severity Reaction Status Date / Time cortisone Allergy burning at Verified 10/22/20 07:11 injection site trazodone Allergy Unknown Verified 10/22/20 07:25 Review of Systems ROS Statement: Those systems with pertinent positive or pertinent negative responses have been documented in the HPI. ROS Other: All systems not noted in ROS Statement are negative. Past Medical History Past Medical History: COPD, CVA/TIA, Diabetes Mellitus, GERD/Reflux, Hyperlipidemia, Hypertension, Myocardial Infarction ([place]), Seizure Disorder, Thyroid Disorder, Vascular Disorder Additional Past Medical History / Comment(s): gout, rt side dominant. vertigo,bronchitis, "poor circulation", chronic back pain, "wears o2 instead of using cpap machine" W/C Last Myocardial Infarction Date:: 2017 History of Any Multi-Drug Resistant Organisms: None Reported Past Surgical History: Cholecystectomy, Heart Catheterization, Heart Catheterization With Stent, Hernia Repair, Joint Replacement Additional Past Surgical History / Comment(s): umb hernia repair, vandana cataract sx," rt groin stents", colonoscopy, rt knee replacment, "nerves burned in back and epidural injections" Past Anesthesia/Blood Transfusion Reactions: Previous Problems w/ Anesthesia, Motion Sickness Additional Past Anesthesia/Blood Transfusion Reaction / Comment(s): claustrophobia. awake during scope. daughter has trouble waking up from anesthesia Date of Last Stent Placement:: 2017 Past Psychological History: No Psychological Hx Reported Smoking Status: Former smoker Past Alcohol Use History: None Reported Past Drug Use History: None Reported - Past Family History Mother History Unknown: Yes Father History Unknown: Yes General Exam Limitations: no limitations General appearance: alert, anxious, in distress, obese Head exam: Present: atraumatic, normocephalic, normal inspection Eye exam: Present: normal appearance, PERRL, EOMI. Absent: scleral icterus, conjunctival injection, periorbital swelling ENT exam: Present: normal exam, mucous membranes dry Neck exam: Present: normal inspection. Absent: tenderness, meningismus, lymphadenopathy Respiratory exam: Present: respiratory distress, wheezes, accessory muscle use, decreased breath sounds, prolonged expiratory. Absent: rales, rhonchi, stridor Cardiovascular Exam: Present: regular rate, irregular rhythm, normal heart sounds. Absent: systolic murmur, diastolic murmur, rubs, gallop, clicks GI/Abdominal exam: Present: soft, normal bowel sounds. Absent: distended, tenderness, guarding, rebound, rigid Extremities exam: Present: normal inspection, full ROM, normal capillary refill. Absent: tenderness, pedal edema, joint swelling, calf tenderness Back exam: Present: normal inspection Neurological exam: Present: alert, oriented X3, CN II-XII intact Psychiatric exam: Present: normal affect, normal mood Skin exam: Present: warm, dry, intact, normal color. Absent: rash Course Vital Signs 05/30/21 05/30/21 05/30/21 05:50 06:09 06:20 Temperature 98.8 F Pulse Rate 93 89 90 Respiratory 20 Rate Blood Pressure 127/80 O2 Sat by Pulse 94 L Oximetry 05/30/21 05/30/21 07:27 09:00 Temperature 98.4 F Pulse Rate 92 94 Respiratory 18 20 Rate Blood Pressure 134/96 134/77 O2 Sat by Pulse 90 L 90 L Oximetry - Reevaluation(s) Reevaluation #1: 05/30/21 05:59 Medical records reviewed Reevaluation #2: 05/30/21 06:40 Patient has significant improvement here during ER stay Reevaluation #3: 05/30/21 06:40 Patient is informed of results and questions have been answered Medical Decision Making - Medical Decision Making 81 male to be admitted for COPD exacerbation history of COPD with multiple admissions. Patient x-ray is consistent with prior x-rays. No current fever. Patient be admitted for breathing treatments and supportive care - Lab Data Result diagrams: 05/30/21 05:59 05/30/21 08:05 Lab Results 05/30/21 05/30/21 05/30/21 Range/Units 05:59 05:59 05:59 WBC 6.7 (3.8-10.6) k/uL RBC 4.85 (4.30-5.90) m/uL Hgb 14.1 (13.0-17.5) gm/dL Hct 46.4 (39.0-53.0) % MCV 95.7 (80.0-100.0) fL MCH 29.0 (25.0-35.0) pg MCHC 30.3 L (31.0-37.0) g/dL RDW 14.4 (11.5-15.5) % Plt Count 185 (150-450) k/uL MPV 11.0 Neutrophils % 75 % Lymphocytes % 13 % Monocytes % 7 % Eosinophils % 3 % Basophils % 0 % Neutrophils # 5.0 (1.3-7.7) k/uL Lymphocytes # 0.9 L (1.0-4.8) k/uL Monocytes # 0.5 (0-1.0) k/uL Eosinophils # 0.2 (0-0.7) k/uL Basophils # 0.0 (0-0.2) k/uL Hypochromasia Moderate PT (9.0-12.0) sec INR (<1.2) APTT (22.0-30.0) sec Sodium (137-145) mmol/L Potassium (3.5-5.1) mmol/L Chloride (98-107) mmol/L Carbon Dioxide (22-30) mmol/L Anion Gap mmol/L BUN (9-20) mg/dL Creatinine (0.66-1.25) mg/dL Est GFR (CKD-EPI)AfAm (>60 ml/min/1.73 sqM) Est GFR (CKD-EPI)NonAf (>60 ml/min/1.73 sqM) Glucose (74-99) mg/dL POC Glucose (mg/dL) (75-99) mg/dL POC Glu Online Tutor ID Plasma Lactic Acid Goyo 1.4 (0.7-2.0) mmol/L Calcium (8.4-10.2) mg/dL Magnesium (1.6-2.3) mg/dL Total Bilirubin (0.2-1.3) mg/dL AST (17-59) U/L ALT (4-49) U/L Alkaline Phosphatase (38-126) U/L Creatine Kinase (55-170) U/L Troponin I (0.000-0.034) ng/mL NT-Pro-B Natriuret Pep 407 pg/mL Total Protein (6.3-8.2) g/dL Albumin (3.5-5.0) g/dL Globulin g/dL Albumin/Globulin Ratio Procalcitonin (0.02-0.09) ng/mL 05/30/21 05/30/21 05/30/21 Range/Units 08:05 08:05 08:05 WBC (3.8-10.6) k/uL RBC (4.30-5.90) m/uL Hgb (13.0-17.5) gm/dL Hct (39.0-53.0) % MCV (80.0-100.0) fL MCH (25.0-35.0) pg MCHC (31.0-37.0) g/dL RDW (11.5-15.5) % Plt Count (150-450) k/uL MPV Neutrophils % % Lymphocytes % % Monocytes % % Eosinophils % % Basophils % % Neutrophils # (1.3-7.7) k/uL Lymphocytes # (1.0-4.8) k/uL Monocytes # (0-1.0) k/uL Eosinophils # (0-0.7) k/uL Basophils # (0-0.2) k/uL Hypochromasia PT 11.1 (9.0-12.0) sec INR 1.1 (<1.2) APTT 24.0 (22.0-30.0) sec Sodium 139 (137-145) mmol/L Potassium 4.4 (3.5-5.1) mmol/L Chloride 96 L (98-107) mmol/L Carbon Dioxide 35 H (22-30) mmol/L Anion Gap 8 mmol/L BUN 30 H (9-20) mg/dL Creatinine 1.05 (0.66-1.25) mg/dL Est GFR (CKD-EPI)AfAm 78 (>60 ml/min/1.73 sqM) Est GFR (CKD-EPI)NonAf 68 (>60 ml/min/1.73 sqM) Glucose 204 H (74-99) mg/dL POC Glucose (mg/dL) (75-99) mg/dL POC Glu Online Tutor ID Plasma Lactic Acid Goyo (0.7-2.0) mmol/L Calcium 9.0 (8.4-10.2) mg/dL Magnesium 1.9 (1.6-2.3) mg/dL Total Bilirubin 0.5 (0.2-1.3) mg/dL AST 24 (17-59) U/L ALT 42 (4-49) U/L Alkaline Phosphatase 207 H (38-126) U/L Creatine Kinase 70 (55-170) U/L Troponin I <0.012 (0.000-0.034) ng/mL NT-Pro-B Natriuret Pep pg/mL Total Protein 7.2 (6.3-8.2) g/dL Albumin 3.8 (3.5-5.0) g/dL Globulin 3.4 g/dL Albumin/Globulin Ratio 1.1 Procalcitonin (0.02-0.09) ng/mL 05/30/21 05/30/21 Range/Units 10:00 11:53 WBC (3.8-10.6) k/uL RBC (4.30-5.90) m/uL Hgb (13.0-17.5) gm/dL Hct (39.0-53.0) % MCV (80.0-100.0) fL MCH (25.0-35.0) pg MCHC (31.0-37.0) g/dL RDW (11.5-15.5) % Plt Count (150-450) k/uL MPV Neutrophils % % Lymphocytes % % Monocytes % % Eosinophils % % Basophils % % Neutrophils # (1.3-7.7) k/uL Lymphocytes # (1.0-4.8) k/uL Monocytes # (0-1.0) k/uL Eosinophils # (0-0.7) k/uL Basophils # (0-0.2) k/uL Hypochromasia PT (9.0-12.0) sec INR (<1.2) APTT (22.0-30.0) sec Sodium (137-145) mmol/L Potassium (3.5-5.1) mmol/L Chloride (98-107) mmol/L Carbon Dioxide (22-30) mmol/L Anion Gap mmol/L BUN (9-20) mg/dL Creatinine (0.66-1.25) mg/dL Est GFR (CKD-EPI)AfAm (>60 ml/min/1.73 sqM) Est GFR (CKD-EPI)NonAf (>60 ml/min/1.73 sqM) Glucose (74-99) mg/dL POC Glucose (mg/dL) 315 H (75-99) mg/dL POC Glu Online Tutor ID Shelia Ceja Plasma Lactic Acid Goyo (0.7-2.0) mmol/L Calcium (8.4-10.2) mg/dL Magnesium (1.6-2.3) mg/dL Total Bilirubin (0.2-1.3) mg/dL AST (17-59) U/L ALT (4-49) U/L Alkaline Phosphatase (38-126) U/L Creatine Kinase (55-170) U/L Troponin I (0.000-0.034) ng/mL NT-Pro-B Natriuret Pep pg/mL Total Protein (6.3-8.2) g/dL Albumin (3.5-5.0) g/dL Globulin g/dL Albumin/Globulin Ratio Procalcitonin 0.10 H (0.02-0.09) ng/mL - EKG Data -: EKG Interpreted by Me (EKG shows Afib 83 QRS 98 [id number]) - Radiology Data Radiology results: report reviewed (Chest x-ray has no significant change from prior, no acute disease), image reviewed Disposition Clinical Impression: Acute exacerbation of chronic obstructive pulmonary disease, COPD (chronic obstructive pulmonary disease) Disposition: ADMITTED IP TO THIS HOSP Condition: Good Is patient prescribed a controlled substance at d/c from ED?: No
[2021-05-30] MEDS: methylPREDNISolone SOD SUCCI 125 MG/2 ML VIAL IV SCH ×4 (06:14→20:47)
[2021-05-30 06:21] LABS: Basophils % (A) 0 %; Eosinophils # (A) 0.2 k/uL (0-0.7); Eosinophils % (A) 3 %; HCT 46.4 % (39.0-53.0); HGB 14.1 gm/dL (13.0-17.5); Hypochromasia Moderate; Lymphocytes # (A) 0.9 k/uL (1.0-4.8); Lymphocytes % (A) 13 %; MCHC 30.3 g/dL (31.0-37.0); MCV 95.7 fL (80.0-100.0); Monocytes # (A) 0.5 k/uL (0-1.0); Monocytes % (A) 7 %; Neutrophils % (A) 75 %; Platelet Count 185 k/uL (150-450); RBC 4.85 m/uL (4.30-5.90); RDW 14.4 % (11.5-15.5); WBC 6.7 k/uL (3.8-10.6)
--- NOTE | 2021-05-30 06:31 | XR ---
EXAMINATION TYPE: XR chest 1V portable DATE OF EXAM: 05/30/2021 COMPARISON: 05/27/2021 HISTORY: Short of breath TECHNIQUE: Single view FINDINGS: There is some coarsening of the lung markings at the lung bases. There is some atelectasis right lung base and elevation of the right diaphragm. There is no gross heart failure. IMPRESSION: There is some interstitial infiltrate and atelectasis in the mid and lower lung queen no t significantly different than last exam. No obvious heart failure.
[2021-05-30] MEDS ORDERED: ALBUTEROL NEBULIZED 2.5 MG/3 ML INHALATION SCH (08:00)
[2021-05-30 08:23] LABS: INR 1.1 (<1.2); Prothrombin Time 11.1 sec (9.0-12.0)
[2021-05-30 08:27] LABS: ALT 42 U/L (4-49); AST 24 U/L (17-59); African American GFR (CKD) 78 (>60 ml/min/1.73 sqM); Albumin 3.8 g/dL (3.5-5.0); Albumin/Globulin Ratio 1.1; Alkaline Phosphatase 207 U/L (38-126); Anion Gap 8 mmol/L; Blood Urea Nitrogen 30 mg/dL (9-20); Carbon Dioxide 35 mmol/L (22-30); Chloride 96 mmol/L (98-107); Creatine Kinase 70 U/L (55-170); Globulin 3.4 g/dL; Glucose 204 mg/dL (74-99); Magnesium 1.9 mg/dL (1.6-2.3); Non-African American GFR(CKD) 68 (>60 ml/min/1.73 sqM); Potassium 4.4 mmol/L (3.5-5.1); Sodium 139 mmol/L (137-145); Total Bilirubin 0.5 mg/dL (0.2-1.3); Total Protein 7.2 g/dL (6.3-8.2)
--- NOTE | 2021-05-30 10:18 | P.CNPUL ---
History of Present Illness Consult date: 05/30/21 Requesting physician: Sharlene Abel Reason for consult: dyspnea, COPD Chief complaint: Generalized weakness, falls, shortness of breath History of present illness: This is a very pleasant 81-year-old gentleman who follows with Dr. Murdock as his primary care provider. He has a history of CVA, coronary artery disease, diabetes mellitus, diabetic peripheral neuropathy, GERD, hyperlipidemia, obstr uctive sleep apnea syndrome intolerant to CPAP, osteoarthritis, DVT and maintained on Eliquis. 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 He previously had been seeing another flocculator operator however he established with Dr. No 05/27/2021 as a new patient. He explained the severity of his illness to the patient and that his lung condition is not reversible. He did make adjustments in the medication switching him to Pulmicort and Perforomist and Yulperi versus the Advair and increase he will had been on. He is not a candidate for surgical repair of the right maria antonia-diaphragm paralysis. He was due for follow-up 07/08/2021. Yesterday however he developed increased weakness of the lower extremities and had fallen and was unable to get back up. He was also complaining of shortness of breath. He is seen today in consultation in the emergency room. He is currently resting comfortably on the gurney. Awake and alert in no acute distress. He is on 4 L nasal cannula with O2 saturation 91%. No IV fluids running currently. EKG reveals atrial fibrillation with a controlled ventricular response. Chest x-ray reveals interstitial infiltrate and atelectasis in the mid lower lung queen. White count 6.7. Hemoglobin 14.1. Sodium 139. Potassium 4.4. Creatinine 1.05. Glucose 204. ProBNP 407. Troponin negative 1. Lactic acid 1.4. He was initiated on DuoNeb inhalations. Review of Systems REVIEW OF SYSTEMS: CONSTITUTIONAL: Positive for generalized weakness. Denies any recent significant weight loss or weight gain. EYES: Denies change in vision. EARS, NOSE, MOUTH, THROAT: Denies headaches, denies sore throat. CARDIOVASCULAR: Denies chest pain, palpitations or syncopal episodes. RESPIRATORY: Positive for shortness of breath, cough, congestion no hemoptysis. GASTROINTESTINAL: Denies change in appetite, denies abdominal pain GENITOURINARY: Denies hematuria, denies infections. MUSKULOSKELETAL: Denies pain, denies swelling. INTEGUMENTARY: Denies rash, denies eczema. NEUROLOGICAL: Denies recent memory loss, no recent seizure activity. PSYCHIATRIC: Denies anxiety, denies depression. HEMATOLOGIC/LYMPHATIC: Denies anemia, denies enlarged lymph nodes. Past Medical History Past Medical History: COPD, CVA/TIA, Diabetes Mellitus, GERD/Reflux, Hyperlipidemia, Hypertension, Myocardial Infarction ([place]), Seizure Disorder, Thyroid Disorder, Vascular Disorder Additional Past Medical History / Comment(s): gout, rt side dominant. vertigo,bronchitis, "poor circulation", chronic back pain, "wears o2 instead of using cpap machine" W/C Last Myocardial Infarction Date:: 2017 History of Any Multi-Drug Resistant Organisms: None Reported Past Surgical History: Cholecystectomy, Heart Catheterization, Heart Catheter ization With Stent, Hernia Repair, Joint Replacement Additional Past Surgical History / Comment(s): umb hernia repair, vandana cataract sx," rt groin stents", colonoscopy, rt knee replacment, "nerves burned in back and epidural injections" Past Anesthesia/Blood Transfusion Reactions: Previous Problems w/ Anesthesia, Motion Sickness Additional Past Anesthesia/Blood Transfusion Reaction / Comment(s): claustrophobia. awake during scope. daughter has trouble waking up from anesthesia Date of Last Stent Placement:: 2017 Past Psychological History: No Psychological Hx Reported Smoking Status: Former smoker Past Alcohol Use History: None Reported Past Drug Use History: None Reported - Past Family History Mother History Unknown: Yes Father History Unknown: Yes Medications and Allergies Home Medications Medication Instructions Recorded Confirmed Type Docusate [Colace] 200 mg PO TID 07/21/18 05/30/21 History Isosorbide Mononitrate ER [Imdur] 30 mg PO HS 07/21/18 05/30/21 History Meclizine [Antivert] 25 mg PO BID 07/21/18 05/30/21 History amLODIPine [Norvasc] 5 mg PO DAILY 07/21/18 05/30/21 History atenoloL [Tenormin] 50 mg PO HS 07/21/18 05/30/21 History Atorvastatin [Lipitor] 40 mg PO HS #30 tab 07/23/18 05/30/21 Rx Nitroglycerin Sl Tabs [Nitrostat] 0.4 mg SUBLINGUAL Q5M PRN #25 tab 07/23/18 05/30/21 Rx Ticagrelor [Brilinta] 90 mg PO BID #60 tab 07/23/18 05/30/21 Rx metFORMIN HCL [Glucophage] 1,000 mg PO BID #0 07/23/18 05/30/21 Rx Furosemide [Lasix] 40 mg PO BID 01/27/19 05/30/21 History HYDROcodone/APAP 10-325MG [[place] 1 tab PO QID 10/08/20 05/30/21 History 10-325] Dicyclomine [Bentyl] 20 mg PO TID 10/18/20 05/30/21 History Ammonium Lactate Lotion 1 applic TOPICAL QAM 05/30/21 05/30/21 History [Lac-Hydrin 12% Lotion] Apixaban [Eliquis] 5 mg PO BID 05/30/21 05/30/21 History Budesonide [Pulmicort] 0.5 mg INHALATION RT-BID 05/30/21 05/30/21 History Cyclobenzaprine [Flexeril] 10 mg PO HS 05/30/21 05/30/21 History Dapagliflozin Propanediol [Farxiga] 10 mg PO HS 05/30/21 05/30/21 History Fluconazole [Diflucan] 150 mg PO DAILY 05/30/21 05/30/21 History Formoterol Fumarate [Perforomist] 20 mcg INHALATION RT-BID 05/30/21 05/30/21 History Gemfibrozil [Lopid] 600 mg PO AC-BID 05/30/21 05/30/21 History Insulin NPH Human Isophane 50 units SQ TID@0500,1400,2100 05/30/21 05/30/21 History [NovoLIN N] Ketoconazole 2% Shampoo [Nizoral] 1 applic TOPICAL MOWEFR 05/30/21 05/30/21 History Lactulose 10 gm PO BID 05/30/21 05/30/21 History Liraglutide [Victoza 3-Dwayne] 1.8 mg SQ DAILY 05/30/21 05/30/21 History Losartan [Cozaar] 25 mg PO HS 05/30/21 05/30/21 History Montelukast Sodium [Singulair] 10 mg PO HS 05/30/21 05/30/21 History Mupirocin 2% Oint [Bactroban 2% 1 applic TOPICAL BID 05/30/21 05/30/21 History Oint] Nystatin 100,000 Unit/gm Powd 1 applic TOPICAL TID 05/30/21 05/30/21 History [Mycostatin Powder] Omeprazole [PriLOSEC] 40 mg PO DAILY 05/30/21 05/30/21 History Potassium Chloride [Klor-Con 20] 20 meq PO HS 05/30/21 05/30/21 History Rosuvastatin Calcium [Crestor] 5 mg PO DAILY 05/30/21 05/30/21 History Yupelri 175 mcg INHALATION RT-DAILY 05/30/21 05/30/21 History cilostazoL [Pletal] 50 mg PO BID 05/30/21 05/30/21 History Allergies Allergy/AdvReac Type Severity Reaction Status Date / Time cortisone Allergy burning at Verified 10/22/20 07:11 injection site trazodone Allergy Unknown Verified 10/22/20 07:25 Physical Exam Vitals: Vital Signs Temp Pulse Resp BP Pulse Ox 05/30/21 09:00 98.4 F 94 20 134/77 90 L 05/30/21 07:27 92 18 134/96 90 L 05/30/21 06:20 90 05/30/21 06:09 89 05/30/21 05:50 98.8 F 93 20 127/80 94 L Intake and Output 05/29/21 05/30/21 05/30/21 22:59 06:59 14:59 Other: Weight 122.47 kg GENERAL EXAM: Alert, pleasant 81-year-old gentleman, on 4 L nasal cannula, fairly comfortable in no apparent distress. HEAD: Normocephalic. EYES: Normal reaction of pupils, equal size. NOSE: Clear with pink turbinates. THROAT: No erythema or exudates. NECK: No masses, no JVD. CHEST: No chest wall deformity. LUNGS: Equal air entry with bilateral index tarry wheeze, diminished throughout more so on the right lung base. CVS: S1 and S2 normal with no audible murmur, regular rhythm. ABDOMEN: No hepatosplenomegaly, normal bowel sounds, no guarding or rigidity. SPINE: No scoliosis or deformity SKIN: No rashes CENTRAL NERVOUS SYSTEM: No focal deficits, tone is normal in all 4 extremities. EXTREMITIES: There is 1+ peripheral edema. No clubbing, no cyanosis. Peripheral pulses are intact. Results - Laboratory Findings CBC and BMP: 05/30/21 05:59 05/30/21 08:05 PT/INR, D-dimer PT 11.1 sec (9.0-12.0) 05/30/21 08:05 INR 1.1 (<1.2) 05/30/21 08:05 Abnormal lab findings: Abnormal Labs 05/30/21 05/30/21 05:59 08:05 MCHC 30.3 L Lymphocytes # 0.9 L Chloride 96 L Carbon Dioxide 35 H BUN 30 H Glucose 204 H Alkaline Phosphatase 207 H - Diagnostic Findings Chest x-ray: image reviewed Assessment and Plan Assessment: 1 Acute on chronic hypoxemic respiratory failure secondary to an acute exacerbation of chronic obstructive pulmonary disease 2 Severe oxygen dependent chronic obstructive pulmonary disease with an FEV1 value 29% of predicted 3 Elevated right hemidiaphragm, suspect paralysis, not a candidate for surgery 4 Former smoker 5 Obstructive sleep apnea, intolerant to CPAP 6 History of coronary artery disease 7 Diabetes mellitus 8 Diabetic peripheral neuropathy 9 Hypertension 10 Hyperlipidemia 11 Obesity Plan: The patient was seen and evaluated by Dr. Wright Chest x-ray and labs reviewed Continue DuoNeb inhalations 4 times a day and when necessary Add Pulmicort and Perforomist inhalations twice a day Continue IV Solu-Medrol Check pro calcitonin We will continue to follow and make further recommendations based on his clinical status I, the cosigning physician, performed a history & physical examination of the patient. Lungs sounds with bilateral end expiratory wheeze, diminished throughout more so on the right lung base. Maintaining good O2 saturations in the 90s on 4 L/m per nasal cannula. I discussed the assessment and plan of care with my nurse practitioner, Genet Cardenas. I attest to the above consultation as dictated by her. Time with Patient: Greater than 30
[2021-05-30] MEDS ORDERED: NITROGLYCERIN SL TABS 0.4 MG TAB SUBLINGUAL PRN (10:49)
[2021-05-30 11:55] LABS: Glucose,Whole Blood 315 mg/dL (75-99)
[2021-05-30] MEDS: IPRATROPIUM-ALBUTEROL 3 ML NEB INHALATION SCH ×3 (12:07→19:52)
[2021-05-30] MEDS: HYDROcodone/APAP 10-325MG 1 EACH TAB PO SCH ×3 (12:43→22:20)
[2021-05-30] MEDS: INSULIN NPH 300 UNIT/3 ML VIAL SQ SCH ×2 (12:44→23:28)
[2021-05-30] MEDS: AMMONIUM LACTATE 12% LOTION 225 GM BTL TOPICAL SCH (12:49)
[2021-05-30 17:35] LABS: Glucose,Whole Blood 380 mg/dL (75-99)
--- NOTE | 2021-05-30 17:39 | P.HPIM ---
History of Present Illness H&P Date: 05/30/21 Josh Jaquez, is a 81 year old male who presented to [facility] emergency room with a chief complaint of worsening shortness of breath He was evaluated in the emergency room vital examination on presentation revealed a temperature of 98.8 pulse 93 respiration 20 blood pressure 127/80 pulse ox 94% on 4 L nasal cannula and 90% on room air Laboratory data reveals a white blood count of 6.7 hemoglobin 14.1 platelet count 185 BUN 30 creatinine 1.05 glucose 204 lactic acid 1.4 troponin less than 0.012 and BNP 407 Testing in the emergency room revealed chest x-ray revealed interstitial infiltrates in the mid and lower lung queen similar to previous exam EKG revealed atrial fibrillation with incomplete right bundle branch block Patient was admitted to medical floor for further evaluation and treatment, he was started on IV Solu-Medrol and inhaled bronchodilators, pulmonary consultation was requested. Past medical history is significant for advanced COPD with chronic hypoxic respiratory failure maintained on home oxygen, underlying history of hypertension, hyperlipidemia, insulin-dependent diabetes mellitus, atrial fibrillation, coronary artery disease, peripheral artery disease, severe morbid obesity, and osteoarthritis with chronic pain syndrome. On review of systems Past Medical History Past Medical History: COPD, CVA/TIA, Diabetes Mellitus, GERD/Reflux, Hyperlipidemia, Hypertension, Myocardial Infarction (CA), Seizure Disorder, Thyroid Disorder, Vascular Disorder Additional Past Medical History / Comment(s): gout, rt side dominant. vertigo,bronchitis, "poor circulation", chronic back pain, "wears o2 instead of using cpap machine" W/C Last Myocardial Infarction Date:: 2017 History of Any Multi-Drug Resistant Organisms: None Reported Past Surgical History: Cholecystectomy, Heart Catheterization, Heart Catheteriz ation With Stent, Hernia Repair, Joint Replacement Additional Past Surgical History / Comment(s): umb hernia repair, vandana cataract sx," rt groin stents", colonoscopy, rt knee replacment, "nerves burned in back and epidural injections" Past Anesthesia/Blood Transfusion Reactions: Previous Problems w/ Anesthesia, Motion Sickness Additional Past Anesthesia/Blood Transfusion Reaction / Comment(s): claustrophobia. awake during scope. daughter has trouble waking up from anesthesia Date of Last Stent Placement:: 2017 Past Psychological History: No Psychological Hx Reported Smoking Status: Former smoker Past Alcohol Use History: None Reported Past Drug Use History: None Reported - Past Family History Mother History Unknown: Yes Father History Unknown: Yes Medications and Allergies Home Medications Medication Instructions Recorded Confirmed Type Docusate [Colace] 200 mg PO TID 07/21/18 05/30/21 History Isosorbide Mononitrate ER [Imdur] 30 mg PO HS 07/21/18 05/30/21 History Meclizine [Antivert] 25 mg PO BID 07/21/18 05/30/21 History amLODIPine [Norvasc] 5 mg PO DAILY 07/21/18 05/30/21 History atenoloL [Tenormin] 50 mg PO HS 07/21/18 05/30/21 History Atorvastatin [Lipitor] 40 mg PO HS #30 tab 07/23/18 05/30/21 Rx Nitroglycerin Sl Tabs [Nitrostat] 0.4 mg SUBLINGUAL Q5M PRN #25 tab 07/23/18 05/30/21 Rx Ticagrelor [Brilinta] 90 mg PO BID #60 tab 07/23/18 05/30/21 Rx metFORMIN HCL [Glucophage] 1,000 mg PO BID #0 07/23/18 05/30/21 Rx Furosemide [Lasix] 40 mg PO BID 01/27/19 05/30/21 History HYDROcodone/APAP 10-325MG [[place] 1 tab PO QID 10/08/20 05/30/21 History 10-325] Dicyclomine [Bentyl] 20 mg PO TID 10/18/20 05/30/21 History Ammonium Lactate Lotion 1 applic TOPICAL QAM 05/30/21 05/30/21 History [Lac-Hydrin 12% Lotion] Apixaban [Eliquis] 5 mg PO BID 05/30/21 05/30/21 History Budesonide [Pulmicort] 0.5 mg INHALATION RT-BID 05/30/21 05/30/21 History Cyclobenzaprine [Flexeril] 10 mg PO HS 05/30/21 05/30/21 History Dapagliflozin Propanediol [Farxiga] 10 mg PO HS 05/30/21 05/30/21 History Fluconazole [Diflucan] 150 mg PO DAILY 05/30/21 05/30/21 History Formoterol Fumarate [Perforomist] 20 mcg INHALATION RT-BID 05/30/21 05/30/21 History Gemfibrozil [Lopid] 600 mg PO AC-BID 05/30/21 05/30/21 History Insulin NPH Human Isophane 50 units SQ TID@0500,1400,2100 05/30/21 05/30/21 History [NovoLIN N] Ketoconazole 2% Shampoo [Nizoral] 1 applic TOPICAL MOWEFR 05/30/21 05/30/21 History Lactulose 10 gm PO BID 05/30/21 05/30/21 History Liraglutide [Victoza 3-Dwayne] 1.8 mg SQ DAILY 05/30/21 05/30/21 History Losartan [Cozaar] 25 mg PO HS 05/30/21 05/30/21 History Montelukast Sodium [Singulair] 10 mg PO HS 05/30/21 05/30/21 History Mupirocin 2% Oint [Bactroban 2% 1 applic TOPICAL BID 05/30/21 05/30/21 History Oint] Nystatin 100,000 Unit/gm Powd 1 applic TOPICAL TID 05/30/21 05/30/21 History [Mycostatin Powder] Omeprazole [PriLOSEC] 40 mg PO DAILY 05/30/21 05/30/21 History Potassium Chloride [Klor-Con 20] 20 meq PO HS 05/30/21 05/30/21 History Rosuvastatin Calcium [Crestor] 5 mg PO DAILY 05/30/21 05/30/21 History Yupelri 175 mcg INHALATION RT-DAILY 05/30/21 05/30/21 History cilostazoL [Pletal] 50 mg PO BID 05/30/21 05/30/21 History Allergies Allergy/AdvReac Type Severity Reaction Status Date / Time cortisone Allergy burning at Verified 10/22/20 07:11 injection site trazodone Allergy Unknown Verified 10/22/20 07:25 Physical Exam Vitals: Vital Signs Temp Pulse Resp BP Pulse Ox 05/30/21 09:00 98.4 F 94 20 134/77 90 L 05/30/21 07:27 92 18 134/96 90 L 05/30/21 06:20 90 05/30/21 06:09 89 05/30/21 05:50 98.8 F 93 20 127/80 94 L Intake and Output 05/29/21 05/30/2121 22:59 06:59 14:59 Other: Weight 122.47 kg In general patient is alert slightly confused in no apparent distress HEENT head normocephalic and atraumatic Neck is supple no JVD no goiter no lymphadenopathy no carotid bruit Chest examination reveals a scattered crackles bilaterally no wheezing Cardiac exam reveals regular heart sounds S1 and S2 no gallops no murmurs Abdomen is soft, obese nontender no organomegaly with normal bowel sounds Extremity exam reveals no edema no cyanosis or clubbing Neurological examination reveals no gross focal deficits Results CBC & Chem 7: 05/30/21 05:59 05/30/21 08:05 Labs: Abnormal Lab Results - Last 24 Hours (Table) 05/30/21 05/30/21 Range/Units 05:59 08:05 MCHC 30.3 L (31.0-37.0) g/dL Lymphocytes # 0.9 L (1.0-4.8) k/uL Chloride 96 L (98-107) mmol/L Carbon Dioxide 35 H (22-30) mmol/L BUN 30 H (9-20) mg/dL Glucose 204 H (74-99) mg/dL Alkaline Phosphatase 207 H (38-126) U/L Assessment and Plan Plan: Acute exacerbation of COPD Chronic hypoxic respirarory failure, secondary to severe COPD, home oxygen dependent. Underlying history of hypertension Underlying history of hyperlipidemia Underlying history of insulin-dependent diabetes mellitus Underlying history of morbid obesity Underlying history of chronic pain syndrome Underlying history of atrial fibrillation Underlying history of coronary artery disease Underlying history of peripheral artery disease Mental status changes with mild confusion will check computed tomography scan of the brain, check urine analysis Patient was started on IV Solu-Medrol and inhaled bronchodilators in the emergency room Home medications reviewed List to includes multiple duplicate medications and medications from multiple specialists Will try to simplify medication regimen Will add sliding scale at this time Will follow closely
--- NOTE | 2021-05-30 18:00 | CT ---
EXAMINATION: CT brain wo con DATE AND TIME: 05/30/2021 5:27 PM CLINICAL INDICATION: PHH; Mental status changes TECHNIQUE: Standard departmental protocol.; 1134.30; COMPARISON: 01/27/2019 FINDINGS: The calvarium is intact. There is no intracranial hemorrhage. There is no intracranial mass or mass effect. No definite new intra-axial or extra-axial attenuation defect. The paranasal sinuses, middle ear cavities, and mastoid sinus air cells are clear. The orbits are unremarkable. IMPRESSION: NO ACUTE PROCESS.
[2021-05-30] MEDS: amLODIPine 5 MG TAB PO SCH (18:25)
[2021-05-30] MEDS: FUROSEMIDE 40 MG TAB PO SCH ×2 (18:26→22:20)
[2021-05-30] MEDS: DOCUSATE 100 MG CAP PO SCH ×2 (18:26→22:20)
[2021-05-30] MEDS: DICYCLOMINE 10 MG CAP PO SCH ×2 (18:26→22:21)
[2021-05-30] MEDS: INSULIN ASPART (NovoLOG) 100 UNIT/ML VIAL SQ SCH (18:54)
[2021-05-30] MEDS: FORMOTEROL FUMARATE 20 MCG/2 ML NEBU INHALATION SCH (19:53)
[2021-05-30] MEDS: BUDESONIDE 1 MG/2 ML NEBU INHALATION SCH (19:53)
[2021-05-30] MEDS ORDERED: BUDESONIDE 0.5 MG/2 ML NEBU INHALATION SCH (20:00)
[2021-05-30] MEDS ORDERED: FORMOTEROL FUMARATE 20 MCG/2 ML NEBU INHALATION SCH (20:00)
[2021-05-30] MEDS: NYSTATIN 100,000 UNIT/GM POWD 15 GM TOPICAL SCH ×2 (20:47→22:19)
[2021-05-30 20:52] LABS: Glucose,Whole Blood 297 mg/dL (75-99)
[2021-05-30] MEDS ORDERED: ISOSORBIDE MONONITRATE ER 30 MG TAB.ER.24H PO SCH (21:00)
[2021-05-30] MEDS ORDERED: NON FORMULARY DRUG (Dapagliflozin Propanediol [Farxiga] 10 MG Tablet) PO SCH (21:00)
[2021-05-30] MEDS ORDERED: POTASSIUM CHLORIDE ER 20 MEQ TAB.ER PO SCH (21:00)
[2021-05-30] MEDS ORDERED: MONTELUKAST 10 MG TAB PO SCH (21:00)
[2021-05-30] MEDS ORDERED: LOSARTAN 25 MG TAB PO SCH (21:00)
[2021-05-30] MEDS ORDERED: atenoloL 50 MG TAB PO SCH (21:00)
[2021-05-30] MEDS ORDERED: ATORVASTATIN 40 MG TAB PO SCH (21:00)
[2021-05-30] MEDS: LACTULOSE 20 GM/30 ML CUP PO SCH (22:19)
[2021-05-30] MEDS: TICAGRELOR 90 MG TAB PO SCH (22:20)
[2021-05-30] MEDS: metFORMIN 500 MG TAB PO SCH (22:21)
[2021-05-30] MEDS: APIXABAN 5 MG TAB PO SCH (22:21)
[2021-05-30] MEDS ORDERED: FLUCONAZOLE 100 MG TAB PO ONE (23:30)
[2021-05-31] MEDS: INSULIN ASPART (NovoLOG) 100 UNIT/ML VIAL SQ SCH ×3 (00:22→12:09)
[2021-05-31] MEDS: methylPREDNISolone SOD SUCCI 125 MG/2 ML VIAL IV SCH ×3 (00:27→12:09)
[2021-05-31 02:41] LABS: Glucose,Whole Blood 272 mg/dL (75-99)
[2021-05-31] MEDS: FORMOTEROL FUMARATE 20 MCG/2 ML NEBU INHALATION SCH (05:46)
[2021-05-31] MEDS: BUDESONIDE 1 MG/2 ML NEBU INHALATION SCH (05:46)
[2021-05-31] MEDS: IPRATROPIUM-ALBUTEROL 3 ML NEB INHALATION SCH ×2 (05:46→11:11)
[2021-05-31] MEDS: INSULIN NPH 300 UNIT/3 ML VIAL SQ SCH ×2 (06:59→16:00)
[2021-05-31 07:00] LABS: ALT 32 U/L (4-49); AST 20 U/L (17-59); African American GFR (CKD) 68 (>60 ml/min/1.73 sqM); Albumin 3.3 g/dL (3.5-5.0); Alkaline Phosphatase 163 U/L (38-126); Anion Gap 6 mmol/L; Blood Urea Nitrogen 42 mg/dL (9-20); Calcium 8.8 mg/dL (8.4-10.2); Carbon Dioxide 37 mmol/L (22-30); Chloride 94 mmol/L (98-107); Globulin 3.2 g/dL; Glucose 271 mg/dL (74-99); Non-African American GFR(CKD) 59 (>60 ml/min/1.73 sqM); Potassium 4.6 mmol/L (3.5-5.1); Sodium 137 mmol/L (137-145); Total Bilirubin 0.3 mg/dL (0.2-1.3); Total Protein 6.5 g/dL (6.3-8.2)
[2021-05-31 07:23] LABS: Glucose,Whole Blood 243 mg/dL (75-99)
[2021-05-31] MEDS ORDERED: YUPELRI INHALATION SCH (08:00)
[2021-05-31 08:06] VITALS: TEMP 98
[2021-05-31] MEDS: LACTULOSE 20 GM/30 ML CUP PO SCH (08:18)
[2021-05-31] MEDS: AMMONIUM LACTATE 12% LOTION 225 GM BTL TOPICAL SCH (08:24)
[2021-05-31] MEDS: NYSTATIN 100,000 UNIT/GM POWD 15 GM TOPICAL SCH (08:26)
[2021-05-31] MEDS: DOCUSATE 100 MG CAP PO SCH (08:26)
[2021-05-31] MEDS: metFORMIN 500 MG TAB PO SCH (08:26)
[2021-05-31] MEDS: FUROSEMIDE 40 MG TAB PO SCH (08:27)
[2021-05-31] MEDS: DICYCLOMINE 10 MG CAP PO SCH (08:28)
[2021-05-31] MEDS: TICAGRELOR 90 MG TAB PO SCH (08:29)
[2021-05-31] MEDS: HYDROcodone/APAP 10-325MG 1 EACH TAB PO SCH ×2 (08:30→15:04)
[2021-05-31] MEDS ORDERED: PANTOPRAZOLE 40 MG TABLET PO SCH (09:00)
[2021-05-31] MEDS ORDERED: NON FORMULARY DRUG (Liraglutide [Victoza 3-Pak] 0.6 MG/0.1 ML Pen.Injctr) SQ SCH (09:00)
[2021-05-31] MEDS ORDERED: KETOCONAZOLE 2% SHAMPOO 1 APPLIC/ML TOPICAL SCH (09:00)
[2021-05-31] MEDS ORDERED: FLUCONAZOLE 100 MG TAB PO SCH (09:00)
--- NOTE | 2021-05-31 09:22 | CDI ---
Documentation Clarification Form Date: 05/31/2021 09:15:58 AM From: Alyson Melissa RN, CCDS Admit Date: 05/30/2021 12:53:00 PM Patient Name: Josh Jaquez Visit Number: [id number] ATTENTION: The Clinical Documentation Specialists (CDI) and [facility] Coding Staff appreciate your assistance in clarifying documentation. Please respond to the clarification below the line at the bottom and electronically sign. The CDI & [facility] Coding staff will review the response and follow-up if needed. Please note: Queries are made part of the Legal Health Record. If you have any questions, please contact the author of this message via ITS. Dr. Sharlene Abel Atrial Fibrillation is documented in the 05/30 H&P and Consults. Additional clarification regarding the type of atrial fibrillation is requested. History/Risk Factors: Atrial Fib, COPD with Chronic Hypoxic Respiratory Failure on Home O2, HTN, HLD, IDDM, CAD, PAD, Morbid Obesity, Chronic Pain Syndrome Clinical Indicators: EK/22 Pulmonary consult: "EKG reveals atrial fibrillation with a controlled ventricular response" 05/30 H&P: "Underlying history of atrial fibrillation." Treatment: Eliquis 5 mg PO BID Tenormin 50 mg PO HS Please clarify the type of atrial fibrillation, if known: [ ] Chronic [ ] Permanent [ ] Paroxysmal [ ] Persistent [ ] Other, please specify [ ] Unable to determine (Template Last Revised: March 2021) Chronic atrial fibrillation MTDD
[2021-05-31 09:38] LABS: Basophils # (A) 0.01 X 10*3/uL (0.00-0.10); Basophils % (A) 0.1 %; Eosinophils # (A) 0 X 10*3/uL (0.04-0.35); Eosinophils % (A) 0 %; HCT 41.8 % (39.6-50.0); HGB 12.9 g/dL (13.0-17.0); Lymphocytes # (A) 0.58 X 10*3/uL (0.90-5.00); Lymphocytes % (A) 5.1 %; MCH 28.7 pg (27.0-32.0); MCHC 30.9 g/dL (32.0-37.0); MCV 93.1 fL (80.0-97.0); Mean Platelet Volume 12.1 fL (9.5-12.2); Monocytes # (A) 0.55 X 10*3/uL (0.20-1.00); Monocytes % (A) 4.8 %; Neutrophils # (A) 10.19 X 10*3/uL (1.80-7.70); Neutrophils % (A) 89.3 %; Platelet Count 263 X 10*3/uL (140-440); RBC 4.49 X 10*6/uL (4.40-5.60); RDW 14.2 % (11.5-14.5); WBC 11.41 X 10*3/uL (4.50-10.00)
--- NOTE | 2021-05-31 10:00 | P.PN ---
Subjective Progress Note Date: 05/31/21 Josh Jaquez, is a 81 year old male who presented to [facility] emergency room with a chief complaint of worsening shortness of breath He was evaluated in the emergency room vital examination on presentation revealed a temperature of 98.8 pulse 93 respiration 20 blood pressure 127/80 pulse ox 94% on 4 L nasal cannula and 90% on room air Laboratory data reveals a white blood count of 6.7 hemoglobin 14.1 platelet count 185 BUN 30 creatinine 1.05 glucose 204 lactic acid 1.4 troponin less than 0.012 and BNP 407 Testing in the emergency room revealed chest x-ray revealed interstitial infiltrates in the mid and lower lung queen similar to previous exam EKG revealed atrial fibrillation with incomplete right bundle branch block Patient was admitted to medical floor for further evaluation and treatment, he was started on IV Solu-Medrol and inhaled bronchodilators, pulmonary consu ltation was requested. Past medical history is significant for advanced COPD with chronic hypoxic re spiratory failure maintained on home oxygen, underlying history of hypertension, hyperlipidemia, insulin-dependent diabetes mellitus, atrial fibrillation, coronary artery disease, peripheral artery disease, severe morbid obesity, and osteoarthritis with chronic pain syndrome. On review of systems On 05/31/2021 patient is resting comfortably in bed. Family is at bedside. Patient does wake follow some commands has intermittent episodes of confusion. Patient having blood in urine and Denson catheter bag. [employer] this a.m. per nursing staff. Hemoglobin stable at 12.9. Family waiting for hospice consult and hoping to take patient home in the next few days. At this time patient denies any chest pain. Shortness of breath has improved. Patient remains on IV steroids. Patient denies nausea vomiting or diarrhea. Patient denies any urinary burning or frequency Objective - Vital Signs Vital signs: Vital Signs Temp 98.0 F 05/31/21 07:00 Pulse 74 05/31/21 07:00 Resp 16 05/31/21 07:00 BP 106/65 05/31/21 07:00 Pulse Ox 91 L 05/31/21 07:00 Intake & Output 05/30/21 05/31/21 05/31/21 18:59 06:59 18:59 Intake Total 240 Output Total 100 4000 Balance -100 -3760 Weight 122.47 kg Intake: Oral 240 Output: Urine 100 4000 Other: Voiding Method Urinal Urinal Diaper Diaper # Voids 1 1 - Exam In general patient is alert slightly confused in no apparent distress HEENT head normocephalic and atraumatic Neck is supple no JVD no goiter no lymphadenopathy no carotid bruit Chest examination reveals a scattered crackles bilaterally no wheezing Cardiac exam reveals regular heart sounds S1 and S2 no gallops no murmurs Abdomen is soft, obese nontender no organomegaly with normal bowel sounds Extremity exam reveals no edema no cyanosis or clubbing Neurological examination reveals no gross focal deficits - Labs CBC & Chem 7: 05/31/21 06:24 05/31/21 06:24 Labs: Abnormal Lab Results - Last 24 Hours (Table) 05/30/21 05/30/21 05/30/21 Range/Units 10:00 11:53 17:28 WBC (4.50-10.00) X 10*3/uL Hgb (13.0-17.0) g/dL MCHC (32.0-37.0) g/dL Immature Gran # (0.00-0.04) X 10*3/uL Neutrophils # (1.80-7.70) X 10*3/uL Lymphocytes # (0.90-5.00) X 10*3/uL Eosinophils # (0.04-0.35) X 10*3/uL Chloride (98-107) mmol/L Carbon Dioxide (22-30) mmol/L BUN (9-20) mg/dL Glucose (74-99) mg/dL POC Glucose (mg/dL) 315 H 380 H (75-99) mg/dL Alkaline Phosphatase (38-126) U/L Albumin (3.5-5.0) g/dL Procalcitonin 0.10 H (0.02-0.09) ng/mL 05/30/21 05/31/21 05/31/21 Range/Units 20:51 02:40 06:24 WBC 11.41 H (4.50-10.00) X 10*3/uL Hgb 12.9 L (13.0-17.0) g/dL MCHC 30.9 L (32.0-37.0) g/dL Immature Gran # 0.08 H (0.00-0.04) X 10*3/uL Neutrophils # 10.19 H (1.80-7.70) X 10*3/uL Lymphocytes # 0.58 L (0.90-5.00) X 10*3/uL Eosinophils # 0 L (0.04-0.35) X 10*3/uL Chloride (98-107) mmol/L Carbon Dioxide (22-30) mmol/L BUN (9-20) mg/dL Glucose (74-99) mg/dL POC Glucose (mg/dL) 297 H 272 H (75-99) mg/dL Alkaline Phosphatase (38-126) U/L Albumin (3.5-5.0) g/dL Procalcitonin (0.02-0.09) ng/mL 05/31/21 05/31/21 Range/Units 06:24 07:22 WBC (4.50-10.00) X 10*3/uL Hgb (13.0-17.0) g/dL MCHC (32.0-37.0) g/dL Immature Gran # (0.00-0.04) X 10*3/uL Neutrophils # (1.80-7.70) X 10*3/uL Lymphocytes # (0.90-5.00) X 10*3/uL Eosinophils # (0.04-0.35) X 10*3/uL Chloride 94 L (98-107) mmol/L Carbon Dioxide 37 H (22-30) mmol/L BUN 42 H (9-20) mg/dL Glucose 271 H (74-99) mg/dL POC Glucose (mg/dL) 243 H (75-99) mg/dL Alkaline Phosphatase 163 H (38-126) U/L Albumin 3.3 L (3.5-5.0) g/dL Procalcitonin (0.02-0.09) ng/mL Assessment and Plan Plan: Acute exacerbation of COPD Chronic hypoxic respirarory failure, secondary to severe COPD, home oxygen dependent. Underlying history of hypertension Underlying history of hyperlipidemia Underlying history of insulin-dependent diabetes mellitus Underlying history of morbid obesity Underlying history of chronic pain syndrome Underlying history of atrial fibrillation Underlying history of coronary artery disease Underlying history of peripheral artery disease Mental status changes with mild confusion will check computed tomography scan of the brain, check urine analysis Hematuria likely secondary from Denson catheter insertion and eliquis. Eliquis currently held. Hemoglobin stable 12.9 Patient was started on IV Solu-Medrol and inhaled bronchodilators in the emergency room Home medications reviewed List to includes multiple duplicate medications and medications from multiple specialists Will try to simplify medication regimen Will add sliding scale at this time Will follow closely family requesting hospice consult
[2021-05-31 11:14] LABS: Glucose,Whole Blood 252 mg/dL (75-99)
[2021-05-31] MEDS: APIXABAN 5 MG TAB PO SCH (11:54)
[2021-05-31] MEDS: amLODIPine 5 MG TAB PO SCH (12:09)
--- NOTE | 2021-05-31 13:06 | P.DS ---
Providers Date of admission: 05/30/21 12:53 Expected date of discharge: 05/31/21 Attending physician: Sharlene Abel Consults: 05/30/21 05:59 Consult Physician Routine Consulting Provider: Alan No Consult Reason/Comments: known Do you want consulting provider notified?: Yes 05/30/21 14:58 Consult Physician Routine Consulting Provider: Janell Castro Consult Reason/Comments: groin excoriation, sacral pressure area Do you want consulting provider notified?: Yes Primary care physician: Sharlene Abel [facility] Course: Discharge diagnosis Acute exacerbation of COPD Chronic hypoxic respirarory failure, secondary to severe COPD, home oxygen dependent. Underlying history of hypertension Underlying history of hyperlipidemia Underlying history of insulin-dependent diabetes mellitus Underlying history of morbid obesity Underlying history of chronic pain syndrome Underlying history of atrial fibrillation Underlying history of coronary artery disease Underlying history of peripheral artery disease Mental status changes with mild confusion will check computed tomography scan of the brain, check urine analysis Hematuria likely secondary from Lennon catheter insertion and eliquis. Eliquis currently held. Hemoglobin stable 12.9 Hospital Course Josh Jaquez, is a 81 year old male who presented to [facility] emergency room with a chief complaint of worsening shortness of breath He was evaluated in the emergency room vital examination on presentation revealed a temperature of 98.8 pulse 93 respiration 20 blood pressure 127/80 pulse ox 94% on 4 L nasal cannula and 90% on room air Laboratory data reveals a white blood count of 6.7 hemoglobin 14.1 platelet count 185 BUN 30 creatinine 1.05 glucose 204 lactic acid 1.4 troponin less than 0.012 and BNP 407 Testing in the emergency room revealed chest x-ray revealed interstitial infiltrates in the mid and lower lung queen similar to previous exam EKG revealed atrial fibrillation with incomplete right bundle branch block Patient was admitted to medical floor for further evaluation and treatment, he was started on IV Solu-Medrol and inhaled bronchodilators, pulmonary consultation was requested. Past medical history is significant for advanced COPD with chronic hypoxic respiratory failure maintained on home oxygen, underlying history of hypertension, hyperlipidemia, insulin-dependent diabetes mellitus, atrial fibrillation, coronary artery disease, peripheral artery disease, severe morbid obesity, and osteoarthritis with chronic pain syndrome. On review of systems On 05/31/2021 patient is resting comfortably in bed. Family is at bedside. Patient does wake follow some commands has intermittent episodes of confusion. Patient having blood in urine and Lennon catheter bag. [facility] this a.m. per nursing staff. Hemoglobin stable at 12.9. Family waiting for hospice consult and hoping to take patient home in the next few days. At this time patient denies any chest pain. Shortness of breath has improved. Patient remains on IV steroids. Patient denies nausea vomiting or diarrhea. Patient denies any urinary burning or frequency Patient will be d/c home with hospice per family request. eliquis to be held due to hematuria. lennon catheter to remain in place. eliquis to be held until evaluated by PCP in office. per nursing everything has been arranged for patient to be d/c home. Patient Condition at Discharge: Stable Plan - Discharge Summary New Discharge Prescriptions: New predniSONE 10 mg PO DIRECTED 12 Days #30 tab Continue Docusate [Colace] 200 mg PO TID atenoloL [Tenormin] 50 mg PO HS Meclizine [Antivert] 25 mg PO BID amLODIPine [Norvasc] 5 mg PO DAILY Isosorbide Mononitrate ER [Imdur] 30 mg PO HS Atorvastatin [Lipitor] 40 mg PO HS #30 tab Nitroglycerin Sl Tabs [Nitrostat] 0.4 mg SUBLINGUAL Q5M PRN #25 tab PRN Reason: Chest Pain Ticagrelor [Brilinta] 90 mg PO BID #60 tab metFORMIN HCL [Glucophage] 1,000 mg PO BID #0 Furosemide [Lasix] 40 mg PO BID HYDROcodone/APAP 10-325MG [[place] 10-325] 1 tab PO QID Dicyclomine [Bentyl] 20 mg PO TID Nystatin 100,000 Unit/gm Powd [Mycostatin Powder] 1 applic TOPICAL TID Montelukast Sodium [Singulair] 10 mg PO HS Lactulose 10 gm PO BID Cyclobenzaprine [Flexeril] 10 mg PO HS Mupirocin 2% Oint [Bactroban 2% Oint] 1 applic TOPICAL BID Ketoconazole 2% Shampoo [Nizoral] 1 applic TOPICAL MOWEFR Ammonium Lactate Lotion [Lac-Hydrin 12% Lotion] 1 applic TOPICAL QAM Insulin NPH Human Isophane [NovoLIN N] 50 units SQ TID@0500,1400,2100 Fluconazole [Diflucan] 150 mg PO DAILY Liraglutide [Victoza 3-Dwayne] 1.8 mg SQ DAILY Dapagliflozin Propanediol [Farxiga] 10 mg PO HS Formoterol Fumarate [Perforomist] 20 mcg INHALATION RT-BID Budesonide [Pulmicort] 0.5 mg INHALATION RT-BID Losartan [Cozaar] 25 mg PO HS Apixaban [Eliquis] 5 mg PO BID #0 cilostazoL [Pletal] 50 mg PO BID Yupelri 175 mcg INHALATION RT-DAILY Potassium Chloride [Klor-Con 20] 20 meq PO HS Omeprazole [PriLOSEC] 40 mg PO DAILY Discontinued Gemfibrozil [Lopid] 600 mg PO AC-BID Rosuvastatin Calcium [Crestor] 5 mg PO DAILY Discharge Medication List Docusate [Colace] 200 mg PO TID 07/21/18 [History] Isosorbide Mononitrate ER [Imdur] 30 mg PO HS 07/21/18 [History] Meclizine [Antivert] 25 mg PO BID 07/21/18 [History] amLODIPine [Norvasc] 5 mg PO DAILY 07/21/18 [History] atenoloL [Tenormin] 50 mg PO HS 07/21/18 [History] Atorvastatin [Lipitor] 40 mg PO HS #30 tab 07/23/18 [Rx] Nitroglycerin Sl Tabs [Nitrostat] 0.4 mg SUBLINGUAL Q5M PRN #25 tab 07/23/18 [Rx] Ticagrelor [Brilinta] 90 mg PO BID #60 tab 07/23/18 [Rx] metFORMIN HCL [Glucophage] 1,000 mg PO BID #0 07/23/18 [Rx] Furosemide [Lasix] 40 mg PO BID 01/27/19 [History] HYDROcodone/APAP 10-325MG [[place] 10-325] 1 tab PO QID 10/08/20 [History] Dicyclomine [Bentyl] 20 mg PO TID 10/18/20 [History] Ammonium Lactate Lotion [Lac-Hydrin 12% Lotion] 1 applic TOPICAL QAM 05/30/21 [History] Budesonide [Pulmicort] 0.5 mg INHALATION RT-BID 05/30/21 [History] Cyclobenzaprine [Flexeril] 10 mg PO HS 05/30/21 [History] Dapagliflozin Propanediol [Farxiga] 10 mg PO HS 05/30/21 [History] Fluconazole [Diflucan] 150 mg PO DAILY 05/30/21 [History] Formoterol Fumarate [Perforomist] 20 mcg INHALATION RT-BID 05/30/21 [History] Insulin NPH Human Isophane [NovoLIN N] 50 units SQ TID@0500,1400,2100 05/30/21 [History] Ketoconazole 2% Shampoo [Nizoral] 1 applic TOPICAL MOWEFR 05/30/21 [History] Lactulose 10 gm PO BID 05/30/21 [History] Liraglutide [Victoza 3-Dwayne] 1.8 mg SQ DAILY 05/30/21 [History] Losartan [Cozaar] 25 mg PO HS 05/30/21 [History] Montelukast Sodium [Singulair] 10 mg PO HS 05/30/21 [History] Mupirocin 2% Oint [Bactroban 2% Oint] 1 applic TOPICAL BID 05/30/21 [History] Nystatin 100,000 Unit/gm Powd [Mycostatin Powder] 1 applic TOPICAL TID 05/30/21 [History] Omeprazole [PriLOSEC] 40 mg PO DAILY 05/30/21 [History] Potassium Chloride [Klor-Con 20] 20 meq PO HS 05/30/21 [History] Yupelri 175 mcg INHALATION RT-DAILY 05/30/21 [History] cilostazoL [Pletal] 50 mg PO BID 05/30/21 [History] Apixaban [Eliquis] 5 mg PO BID #0 05/31/21 [Rx] predniSONE 10 mg PO DIRECTED 12 Days #30 tab 05/31/21 [Rx] Follow up Appointment(s)/Referral(s): Sharlene Abel MD [Primary Care Provider] - 1-2 days Activity/Diet/Wound Care/Special Instructions: keep lennon catheter. Hold eliquis until seen by Dr. abel in office Discharge Disposition: HOME WITH HOSPICE
--- NOTE | 2021-05-31 13:31 | P.PN ---
Subjective Progress Note Date: 05/31/21 Principal diagnosis: Shortness of breath. This is a very pleasant 81-year-old gentleman who follows with Dr. Murdock as his primary care provider. He has a history of CVA, coronary artery disease, diabetes mellitus, diabetic peripheral neuropathy, GERD, hyperlipidemia, obstructive sleep apnea syndrome intolerant to CPAP, osteoarthritis, DVT and maintained on Eliquis. 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 He previously had been seeing another oxygen equipment technician however he established with Dr. No 05/27/2021 as a new patient. He explained the severity of his illness to the patient and that his lung condition is not reversible. He did make adjustments in the medication switching him to Pulmicort and Perforomist and Yulperi versus the Advair and increase he will had been on. He is not a candidate for surgical repair of the right maria antonia-diaphragm paralysis. He was due for follow-up 07/08/2021. Yesterday however he developed increased weakness of the lower extremities and had fallen and was unable to get back up. He was also complaining of shortness of breath. He is seen today in consultation in the emergency room. He is currently resting comfortably on the gurney. Awake and alert in no acute distress. He is on 4 L nasal cannula with O2 saturation 91%. No IV fluids running currently. EKG reveals atrial fibrillation with a controlled ventricular response. Chest x-ray reveals interstitial infiltrate and atelectasis in the mid lower lung queen. White count 6.7. Hemoglobin 14.1. Sodium 139. Potassium 4.4. Creatinine 1.05. Glucose 204. ProBNP 407. Troponin negative 1. Lactic acid 1.4. He was initiated on DuoNeb inhalations. Progress note dated 05/31/2029. 81-year-old male who was seen yesterday in the emergency room. She does see my partner, as well as other doctors. The patient has a history of CVA, coronary disease, diabetes, diabetic peripheral neuropathy, GERD, hyperlipidemia, sleep apnea, osteoarthritis, DVT, and diaphragm paralysis. The patient does have severe COPD, with an FEV1 that is 29% of predicted. He has right hemidiaphragm paralysis. Clinically he is doing better. He's on 4 L. His breathing is improved. When I entered the room, the daughter states that the patient is going to go hospice. I was a bit surprised by that. Apparently it was a family decision as well as the patient's decision. He states that his breathing is improved. He denies any coughing or phlegm production. No fever or chills. No chest pain or chest discomfort. Laboratory data from today includes a white count of 11.41 hemoglobin 12.9 hematocrit 41.8 and platelet count 263,000. Sodium and potassium are normal chloride 94 CO2 37 anion gap 6, BUN 42, and creatinine 1.17. Chest x-ray and brain CT from yesterday have been reviewed. Objective - Vital Signs Vital signs: Vital Signs Temp 98.0 F 05/31/21 07:00 Pulse 77 05/31/21 12:07 Resp 20 05/31/21 12:07 BP 115/71 05/31/21 12:07 Pulse Ox 90 L 05/31/21 12:07 Intake & Output 05/30/21 05/31/21 05/31/21 18:59 06:59 18:59 Intake Total 240 Output Total 100 4000 600 Balance -100 -3760 -600 Weight 122.47 kg Intake: Oral 240 Output: Urine 100 4000 600 Other: Voiding Method Urinal Urinal Indwelling Catheter Diaper Diaper # Voids 1 1 # Bowel Movements 1 - Exam No acute distress, oriented 3. Nasal O2 in place at 4 L. The patient looks much more comfortable today. HEENT examination is grossly unremarkable. Neck supple. Full range of motion. No adenopathy thyromegaly or neck vein distention. Cardiovascular examination reveals regular rhythm rate. S1-S2 normal. No S3 or S4. No discernible murmur noted. Heart sounds are distant. Heart rate is 80 bpm. Lungs reveal scattered bilateral rhonchi. Breath sounds are equal bilaterally but diminished throughout. No distinct wheezes are noted. That is an improvement. No crackles. Slight prolongation on forced maneuver. Abdomen soft bowel sounds are heard. No masses or tenderness. Extremities are intact. No cyanosis clubbing or edema. Skin is without rash or lesion. Neurologic examination is brief but nonfocal. - Labs CBC & Chem 7: 05/31/21 06:24 05/31/21 06:24 Labs: Abnormal Lab Results - Last 24 Hours (Table) 05/30/21 05/30/21 05/30/21 Range/Units 10:00 17:28 20:51 WBC (4.50-10.00) X 10*3/uL Hgb (13.0-17.0) g/dL MCHC (32.0-37.0) g/dL Immature Gran # (0.00-0.04) X 10*3/uL Neutrophils # (1.80-7.70) X 10*3/uL Lymphocytes # (0.90-5.00) X 10*3/uL Eosinophils # (0.04-0.35) X 10*3/uL Chloride (98-107) mmol/L Carbon Dioxide (22-30) mmol/L BUN (9-20) mg/dL Glucose (74-99) mg/dL POC Glucose (mg/dL) 380 H 297 H (75-99) mg/dL Alkaline Phosphatase (38-126) U/L Albumin (3.5-5.0) g/dL Procalcitonin 0.10 H (0.02-0.09) ng/mL 05/31/21 05/31/21 05/31/21 Range/Units 02:40 06:24 06:24 WBC 11.41 H (4.50-10.00) X 10*3/uL Hgb 12.9 L (13.0-17.0) g/dL MCHC 30.9 L (32.0-37.0) g/dL Immature Gran # 0.08 H (0.00-0.04) X 10*3/uL Neutrophils # 10.19 H (1.80-7.70) X 10*3/uL Lymphocytes # 0.58 L (0.90-5.00) X 10*3/uL Eosinophils # 0 L (0.04-0.35) X 10*3/uL Chloride 94 L (98-107) mmol/L Carbon Dioxide 37 H (22-30) mmol/L BUN 42 H (9-20) mg/dL Glucose 271 H (74-99) mg/dL POC Glucose (mg/dL) 272 H (75-99) mg/dL Alkaline Phosphatase 163 H (38-126) U/L Albumin 3.3 L (3.5-5.0) g/dL Procalcitonin (0.02-0.09) ng/mL 05/31/21 05/31/21 Range/Units 07:22 11:13 WBC (4.50-10.00) X 10*3/uL Hgb (13.0-17.0) g/dL MCHC (32.0-37.0) g/dL Immature Gran # (0.00-0.04) X 10*3/uL Neutrophils # (1.80-7.70) X 10*3/uL Lymphocytes # (0.90-5.00) X 10*3/uL Eosinophils # (0.04-0.35) X 10*3/uL Chloride (98-107) mmol/L Carbon Dioxide (22-30) mmol/L BUN (9-20) mg/dL Glucose (74-99) mg/dL POC Glucose (mg/dL) 243 H 252 H (75-99) mg/dL Alkaline Phosphatase (38-126) U/L Albumin (3.5-5.0) g/dL Procalcitonin (0.02-0.09) ng/mL Assessment and Plan Assessment: 1 Acute on chronic hypoxemic respiratory failure secondary to an acute exacerbation of chronic obstructive pulmonary disease. 2 Severe oxygen dependent chronic obstructive pulmonary disease with an FEV1 value 29% of predicted. 3 Elevated right hemidiaphragm, suspect paralysis, not a candidate for surgery. 4 Former smoker. 5 Obstructive sleep apnea, intolerant to CPAP. 6 History of coronary artery disease. 7 Diabetes mellitus. 8 Diabetic peripheral neuropathy. 9 Hypertension. 10 Hyperlipidemia. 11 Obesity. Plan: Plan dated 05/31/2021. Yesterday, when the patient was seen, he was placed on DuoNeb nebs, 4 times a day and when necessary, Pulmicort 1 mg mixed with performist test 20 g, twice a day. We also the patient on Solu-Medrol. Apparently, the patient is going to b e discharged today to home hospice. That was a bit a surprise to me. Apparently the entire family is in agreement including the patient. The entire family was in the room when I evaluated the patient today. Discharge later today apparently. Should the patient not be discharged, we will continue to see the patient and make recommendations where appropriate. Time with Patient: Less than 30
--- NOTE | 2021-05-31 14:35 | PN ---
PROGRESS NOTE DATE OF SERVICE: 05/31/2021 REASON FOR FOLLOW UP: Extensive bilateral groin area cutaneous candidiasis. INTERVAL HISTORY: The patient is afebrile. The patient is more awake and alert today. He is breathing comfortably. Denies any chest pain. Occasional cough. No abdominal pain. Overall pain and discomfort to the groin area has improved. PHYSICAL EXAMINATION: Blood pressure 115/71, pulse of 77, temperature 98. He is 90% on 4 L nasal cannula. General description is an elderly male lying in no distress. Respiratory system: Unlabored breathing, clear to auscultation anteriorly. Heart S1, S2. Regular rate and rhythm. Abdomen soft, no tenderness. LABS: Hemoglobin is 10.1, white count 11.41. BUN of 14, creatinine 1.17. DIAGNOSTIC IMPRESSION AND PLAN: Patient with bilateral groin extensive cutaneous candidiasis. Patient is covered with nystatin powder. However, the family planning on making him hospice which may be appropriate for him, hence, ID will sign off. Please call back any questions or concerns of infectious disease care. MMODL / IJN: [id number] /
[2021-05-31 14:55] VITALS: BP 134/75; PULSE 89; RESP 16
--- NOTE | 2021-05-31 15:54 | P.CONS ---
History of Present Illness - Reason for Consult Consult date: 05/30/21 Groin Excoriation , sacral ulcer Requesting physician: Sharlene Abel - Chief Complaint shortness of breath x few days - History of Present Illness Patient is a 81 year male with a past medical history significant for COPD, patient was brought into the ER for evaluation of increasing shortness of breath. Apparently, the patient's symptom have been getting worse for the last few days before presentation to the hospital, no history of any fever or chills or any cough. As per the history obtained from the daughter at the bedside and the patient was lethargic and did not answer any question, patient on presentation hospital was afebrile, patient did have a normal white count, patient did have a chest x-ray no heart failure, some interstitial infiltrate and atelectasis. For which the patient has been evaluated by pulmonary and is currently being treated with steroids, bronchodilators, patient was noticed to have extensive rash to the bilateral groin area for which infectious disease was consulted for further management. When asked specifically, the patient daughter present at the bedside mention he has this for a few days to weeks now, she was not sure about what local treatment has been provided to it, still remains to be limited as most information has been obtained from review the chart and talking to the daughter Review of Systems Positive points has been mentioned in HPI complete review could not be obtained because of his underlying mental status Past Medical History Past Medical History: COPD, CVA/TIA, Diabetes Mellitus, GERD/Reflux, Hyperlipidemia, Hypertension, Myocardial Infarction ([place]), Seizure Disorder, Thyroid Disorder, Vascular Disorder Additional Past Medical History / Comment(s): gout, rt side dominant. vertigo,bronchitis, "poor circulation", chronic back pain, "wears o2 instead of using cpap machine" W/C Last Myocardial Infarction Date:: 2018 History of Any Multi-Drug Resistant Organisms: None Reported Past Surgical History: Cholecystectomy, Heart Catheterization, Heart Catheterization With Stent, Hernia Repair, Joint Replacement Additional Past Surgical History / Comment(s): umb hernia repair, vandana cataract sx," rt groin stents", colonoscopy, rt knee replacment, "nerves burned in back and epidural injections" bilateral cataracts removed Past Anesthesia/Blood Transfusion Reactions: Previous Problems w/ Anesthesia, Motion Sickness Additional Past Anesthesia/Blood Transfusion Reaction / Comm: claustrophobia. awake during scope. daughter has trouble waking up from anesthesia Date of Last Stent Placement:: 2018 Past Psychological History: No Psychological Hx Reported Additional Psychological History / Comment(s): pt lives with daughter.has a caregiver(tatyana/grand daughter) Smoking Status: Former smoker Past Alcohol Use History: None Reported Additional Past Alcohol Use History / Comment(s): pt chewed tobacco from age 16 till 2018. Past Drug Use History: None Reported - Past Family History Mother History Unknown: Yes Father History Unknown: Yes Medications and Allergies Home Medications Medication Instructions Recorded Confirmed Type Docusate [Colace] 200 mg PO TID 07/21/18 05/30/21 History Isosorbide Mononitrate ER [Imdur] 30 mg PO HS 07/21/18 05/30/21 History Meclizine [Antivert] 25 mg PO BID 07/21/18 05/30/21 History amLODIPine [Norvasc] 5 mg PO DAILY 07/21/18 05/30/21 History atenoloL [Tenormin] 50 mg PO HS 07/21/18 05/30/21 History Atorvastatin [Lipitor] 40 mg PO HS #30 tab 07/23/18 05/30/21 Rx Nitroglycerin Sl Tabs [Nitrostat] 0.4 mg SUBLINGUAL Q5M PRN #25 tab 07/23/18 05/30/21 Rx Ticagrelor [Brilinta] 90 mg PO BID #60 tab 07/23/18 05/30/21 Rx metFORMIN HCL [Glucophage] 1,000 mg PO BID #0 07/23/18 05/30/21 Rx Furosemide [Lasix] 40 mg PO BID 01/27/19 05/30/21 History HYDROcodone/APAP 10-325MG [Tieton 1 tab PO QID 10/08/20 05/30/21 History 10-325] Dicyclomine [Bentyl] 20 mg PO TID 10/18/20 05/30/21 History Ammonium Lactate Lotion 1 applic TOPICAL QAM 05/30/21 05/30/21 History [Lac-Hydrin 12% Lotion] Budesonide [Pulmicort] 0.5 mg INHALATION RT-BID 05/30/21 05/30/21 History Cyclobenzaprine [Flexeril] 10 mg PO HS 05/30/21 05/30/21 History Dapagliflozin Propanediol [Farxiga] 10 mg PO HS 05/30/21 05/30/21 History Fluconazole [Diflucan] 150 mg PO DAILY 05/30/21 05/30/21 History Formoterol Fumarate [Perforomist] 20 mcg INHALATION RT-BID 05/30/21 05/30/21 History Insulin NPH Human Isophane 50 units SQ TID@0500,1400,2100 05/30/21 05/30/21 History [NovoLIN N] Ketoconazole 2% Shampoo [Nizoral] 1 applic TOPICAL MOWEFR 05/30/21 05/30/21 History Lactulose 10 gm PO BID 05/30/21 05/30/21 History Liraglutide [Victoza 3-Dwayne] 1.8 mg SQ DAILY 05/30/21 05/30/21 History Losartan [Cozaar] 25 mg PO HS 05/30/21 05/30/21 History Montelukast Sodium [Singulair] 10 mg PO HS 05/30/21 05/30/21 History Mupirocin 2% Oint [Bactroban 2% 1 applic TOPICAL BID 05/30/21 05/30/21 History Oint] Nystatin 100,000 Unit/gm Powd 1 applic TOPICAL TID 05/30/21 05/30/21 History [Mycostatin Powder] Omeprazole [PriLOSEC] 40 mg PO DAILY 05/30/21 05/30/21 History Potassium Chloride [Klor-Con 20] 20 meq PO HS 05/30/21 05/30/21 History Yupelri 175 mcg INHALATION RT-DAILY 05/30/21 05/30/21 History cilostazoL [Pletal] 50 mg PO BID 05/30/21 05/30/21 History Apixaban [Eliquis] 5 mg PO BID #0 05/31/21 05/30/21 Rx predniSONE 10 mg PO DIRECTED 12 Days #30 05/31/21 Rx tab Allergies Allergy/AdvReac Type Severity Reaction Status Date / Time cortisone Allergy burning at Verified 10/22/20 07:11 injection site trazodone Allergy Unknown Verified 10/22/20 07:25 Physical Exam Vitals: Vital Signs Temp Pulse Pulse Resp BP BP Pulse Ox 05/30/21 16:08 93 16 127/63 90 L 05/30/21 15:53 91 05/30/21 15:45 87 05/30/21 14:33 98.1 F 89 20 157/107 88 L 05/30/21 14:00 20 05/30/21 12:16 88 05/30/21 12:07 85 05/30/21 11:53 85 91 L 05/30/21 11:01 98.1 F 90 20 111/51 88 L 05/30/21 11:00 20 05/30/21 09:00 98.4 F 94 20 134/77 90 L 05/30/21 07:27 92 18 134/96 90 L 05/30/21 06:20 90 05/30/21 06:09 89 05/30/21 05:50 98.8 F 93 20 127/80 94 L Intake and Output 05/30/21 05/30/21 05/30/21 06:59 14:59 22:59 Output Total 100 Balance -100 Output: Urine 100 Other: Voiding Method Urinal Diaper # Voids 1 Weight 122.47 kg 122.47 kg GENERAL DESCRIPTION: Elderly male lying in bed, no distress. No tachypnea or accessory muscle of respiration use. HEENT: Shows Pallor , no scleral icterus. Oral mucous membrane is dry. No pharyngeal erythema or thrush NECK: Trachea central, no thyromegaly. LUNGS: Unlabored breathing. Coarse breath sounds bilaterally. No wheeze or crackle. HEART: S1, S2, regular rate and rhythm. No loud murmur ABDOMEN: Soft, no tenderness , guarding or rigidity, no organomegaly EXTREMITIES: No edema of feet. SKIN: No rash, no masses palpable. Extensive erythematous rash to bilateral groin area, no evidence of any sacral pressure ulcer NEUROLOGICAL: The patient is lethargic orientation could not be determined Results CBC & Chem 7: 05/31/21 06:24 05/31/21 06:24 Labs: Abnormal Lab Results - Last 24 Hours (Table) 05/30/21 05/30/21 05/30/21 Range/Units 05:59 08:05 11:53 MCHC 30.3 L (31.0-37.0) g/dL Lymphocytes # 0.9 L (1.0-4.8) k/uL Chloride 96 L (98-107) mmol/L Carbon Dioxide 35 H (22-30) mmol/L BUN 30 H (9-20) mg/dL Glucose 204 H (74-99) mg/dL POC Glucose (mg/dL) 315 H (75-99) mg/dL Alkaline Phosphatase 207 H (38-126) U/L Assessment and Plan Assessment: 1-patient with extensive bilateral groin area cutaneous candidiasis with no clinical evidence of secondary bacterial cellulitis 2-patient admitted to the hospital likely for COPD exacerbation and tracheobronchitis, clinically not behaving as pneumonia Plan: 1- local care with nystatin powder twice a day , and may consider short course of oral Diflucan once the patient wakes up and oral intake improves 2. No need for systemic antibiotic therapy Daughter at the bedside. Multiple questions were answered We will follow on clinical condition and cultures to further adjust medication if needed Thank you for this consultation will follow this patient with you- Time with Patient: Greater than 30
[2021-05-31 15:58] LABS: Glucose,Whole Blood 309 mg/dL (75-99)
== END 2021-05-31 17:45 | disposition hospice, home (50) | DRG 190 ==
LOC: EC 05:49 → 6NMEDSUR 06:00 → OBSVTOIN 12:53
PROVIDERS: ADMIT Internal Medicine; ATTEND Internal Medicine
DX: J44.1 Chronic obstructive pulmonary disease with (acute) exacerbation (principal); J96.21 Acute and chronic respiratory failure with hypoxia; I48.20 Chronic atrial fibrillation, unspecified; D68.32 Hemorrhagic disorder due to extrinsic circulating anticoagulants; T83.83XA Hemorrhage due to genitourinary prosthetic devices, implants and grafts, initial encounter; E11.42 Type 2 diabetes mellitus with diabetic polyneuropathy; E11.51 Type 2 diabetes mellitus with diabetic peripheral angiopathy without gangrene; Z68.37 Body mass index [BMI] 37.0-37.9, adult; R31.9 Hematuria, unspecified; Y73.2 Prosthetic and other implants, materials and accessory gastroenterology and urology devices associated with adverse incidents; Y92.239 Unspecified place in hospital as the place of occurrence of the external cause; T45.525A Adverse effect of antithrombotic drugs, initial encounter; R41.0 Disorientation, unspecified; E78.5 Hyperlipidemia, unspecified; G40.909 Epilepsy, unspecified, not intractable, without status epilepticus; G47.33 Obstructive sleep apnea (adult) (pediatric); M54.9 Dorsalgia, unspecified; M10.9 Gout, unspecified; F40.240 Claustrophobia; E66.01 Morbid (severe) obesity due to excess calories; G89.4 Chronic pain syndrome; I10 Essential (primary) hypertension; B37.2 Candidiasis of skin and nail; J98.6 Disorders of diaphragm; I25.10 Atherosclerotic heart disease of native coronary artery without angina pectoris; Z51.5 Encounter for palliative care; I25.2 Old myocardial infarction; Z86.718 Personal history of other venous thrombosis and embolism; Z79.01 Long term (current) use of anticoagulants; Z87.01 Personal history of pneumonia (recurrent); Z79.51 Long term (current) use of inhaled steroids; Z88.8 Allergy status to other drugs, medicaments and biological substances; Z95.5 Presence of coronary angioplasty implant and graft; Z90.49 Acquired absence of other specified parts of digestive tract; Z99.81 Dependence on supplemental oxygen; Z79.02 Long term (current) use of antithrombotics/antiplatelets; Z79.4 Long term (current) use of insulin; Z86.73 Personal history of transient ischemic attack (TIA), and cerebral infarction without residual deficits; Z87.891 Personal history of nicotine dependence; Z79.899 Other long term (current) drug therapy
CPT/HCPCS: 36415; 70450; 71045; 80053; 82550; 83605; 83735; 83880; 84145; 84484; 85025; 85610; 85730; 93005; 94640; 99285